=== PATIENT | male | born 1935 | race Caucasian/White ===

== ENCOUNTER 2020-09-21 14:52 | Inpatient (IN) | payer MEDICARE, BC ==
[~2020-09-21] VITALS: Ht 175.3 cm; Wt 67.3 kg
[2020-09-21] MEDS ORDERED: ONDANSETRON 4MG/2ML VIAL IV ONE (15:15)
[2020-09-21] MEDS: NS 1,000 ML IV SCH (15:53)
[2020-09-21] MEDS: MORPHINE 2 MG/ML 1ML VIAL (J2270) IV PRN ×2 (15:54→17:05)
[2020-09-21 16:01] LABS: BASO % 0.3 % (0.0-1.0); EOS # 0.1 10^3/uL (0.0-0.5); EOS % 0.5 % (0.0-3.0); HEMATOCRIT 35.6 % (42.0-52.0); HEMOGLOBIN 11.6 g/dl (13.5-17.5); LYMPH # 0.8 10^3/uL (1.5-5.0); LYMPH % 8.4 % (24.0-44.0); MEAN CORPUSCULAR HEMOGLOBIN 31.4 pg (27.0-33.0); MEAN CORPUSCULAR HGB CONC 32.6 g/dl (32.0-36.5); MEAN CORPUSCULAR VOLUME 96.5 fl (80.0-96.0); MONO # 1.1 10^3/uL (0.0-0.8); MONO % 11.4 % (2.0-8.0); NEUTROPHILS # 7.5 10^3/uL (1.5-8.5); NEUTROPHILS % 79.2 % (36.0-66.0); PLATELET COUNT, AUTOMATED 149 10^3/uL (150-450); RED BLOOD COUNT 3.69 10^6/uL (4.30-6.10); WHITE BLOOD COUNT 9.5 10^3/uL (4.0-10.0)
--- NOTE | 2020-09-21 16:17 | REP ---
INDICATION: pre-op. COMPARISON: None. TECHNIQUE: AP single view chest x-ray. FINDINGS: A bipolar pacemaker is seen in the right heart view of the left side. Monitoring electrodes are noted. Heart is near the upper range of normal in size. The lungs are well inflated and clear. The pleural angles are sharp. Thoracic aorta is calcific. Pulmonary vasculature is not increased. There is soft tissue fullness at the thoracic inlet around the trachea consistent with enlarged thyroid gland versus tortuous vessels. IMPRESSION: Bipolar pacemaker. Borderline heart size. Otherwise no acute disease. <Electronically signed by Thompson Adams > 09/21/20 [id number]
--- NOTE | 2020-09-21 16:18 | REP ---
INDICATION: trauma. Inter trochanteric left hip fracture. COMPARISON: Comparison is made with today's left hip and pelvis views.. TECHNIQUE: AP and lateral views of the mid and distal femur on the left are presented. FINDINGS: AP and latter views of the oral left mid and distal femur demonstrate some clothing artifact. There is patellar spurring at the superior pole. No mid or distal femur fracture is seen.. . No opaque foreign body noted. IMPRESSION: No additional fracture seen. Patellar spurring.. <Electronically signed by Thompson Adams > 09/21/20 [id number]
--- NOTE | 2020-09-21 16:19 | REP ---
INDICATION: trauma. COMPARISON: None. TECHNIQUE: AP view pelvis, AP and cross-table lateral left hip. FINDINGS: Mildly displaced intertrochanteric fracture is visualized of the proximal left femur. There is metallic internal fixation in the proximal right femur, which appears intact. There is no other evidence of acute fracture or dislocation. There are mild degenerative changes at both hip joints. There are degenerative changes of the lower lumbar spine. IMPRESSION: Mildly displaced intertrochanteric fracture proximal left femur. <Electronically signed by Golden Izaguirre > 09/21/20 [id number]
[2020-09-21 16:20] LABS: INR 1.41; PROTHROMBIN TIME 17.6 SECONDS (12.5-14.3)
[2020-09-21 16:21] LABS: PARTIAL THROMBOPLASTIN TIME 31.2 SECONDS (24.2-38.5)
[2020-09-21] MEDS ORDERED: ATOR1TAB19 PO (16:26)
[2020-09-21] MEDS ORDERED: AMLO2.5T3 PO (16:26)
[2020-09-21] MEDS ORDERED: AMLO1TAB24 PO (16:26)
[2020-09-21] MEDS ORDERED: LOSA50TA88 PO (16:26)
[2020-09-21] MEDS ORDERED: FLUD0.1T PO (16:26)
[2020-09-21] MEDS ORDERED: XARE15TA PO (16:26)
[2020-09-21 16:32] LABS: BLOOD UREA NITROGEN 23 MG/DL (7-18); CALCIUM LEVEL 8.2 MG/DL (8.8-10.2); CARBON DIOXIDE LEVEL 29 MEQ/L (21-32); CHLORIDE LEVEL 107 MEQ/L (98-107); CK-MB VALUE MASS 1.5 NG/ML (<3.6); CPK CREATINE PHOSPHOKINASE 69 U/L (39-308); CREATININE FOR GFR 1.03 MG/DL (0.70-1.30); GLOMERULAR FILTRATION RATE > 60.0 (>35); GLUCOSE, FASTING 119 MG/DL (70-100); MB/CK RELATIVE INDEX 2.17 (< OR =4); POTASSIUM SERUM 4.1 MEQ/L (3.5-5.1); SODIUM LEVEL 142 MEQ/L (136-145); TROPONIN I 0.03 NG/ML (< 0.10)
[2020-09-21 16:50] LABS: RSV AMPLIFICATION NEGATIVE (NEGATIVE)
--- NOTE | 2020-09-21 18:37 | HPEPDOC ---
[facility] Medical History & Physical Date of Admission Sep 21, 2020 Date of Service: Sep 21, 2020 History and Physical CHIEF COMPLAINT: left hip pain HISTORY OF PRESENT ILLNESS: 85 year old male presents for left hip pain after a mechanical fall. Patient states he lost his balance while doing errands in his home. Denied head trauma, loss of consciousness, shortness of breath, chest pain, abdominal pain, or N/V/D. He states he typically is able to perform over 30 minutes of activity easily, without ever having anginal symptoms or SOB. PAST MEDICAL HISTORY: #HTN #HLD #afib/xarelto #arrhythmia s/p PPM ALLERGIES: Please see below. REVIEW OF SYSTEMS: Negative except as per HPI. HOME MEDICATIONS: Please see below. PHYSICAL EXAMINATION: VITAL SIGNS: See below General: NAD, lying comfortably in bed HEENT: NC/AT Lungs: CTA B/L Heart: +S1S2, RRR Abd: soft, NT, +BS LABORATORY DATA: See below. MICROBIOLOGY: Please see below. A/P: 85 yo male for left hip fracture after mechanical fall, PMHx afib on xarelto. #left hip fracture - follow as per ortho #HTN - continue home meds #HLD - continue statin therapy #chronic afib - holding xarelto for planned surgery #DVT prophylaxis Vital Signs Vital Signs Date Time Temp Pulse Resp B/P (MAP) Pulse Ox O2 Delivery O2 Flow Rate FiO2 09/21/20 16:55 18 Room Air 09/21/20 15:09 98.6 80 140/78 (98) 99 Laboratory Data Labs 24H Laboratory Tests 2 09/21/20 15:50: Immature Granulocyte % (Auto) 0.2, Neutrophils (%) (Auto) 79.2H, Lymphocytes (%) (Auto) 8.4L, Monocytes (%) (Auto) 11.4H, Eosinophils (%) (Auto) 0.5, Basophils (%) (Auto) 0.3, Neutrophils # (Auto) 7.5, Lymphocytes # (Auto) 0.8L, Monocytes # (Auto) 1.1H, Eosinophils # (Auto) 0.1, Basophils # (Auto) 0.0, Nucleated Red Blood Cells % (auto) 0.0, Prothrombin Time 17.6H, Prothromb Time International Ratio 1.41, Activated Partial Thromboplast Time 31.2, Anion Gap 6L, Glomerular Filtration Rate > 60.0, Calcium Level 8.2L, Total Creatine Kinase 69, Creatine Kinase MB 1.5, Creatine Kinase MB Relative Index 2.17, Troponin I 0.03, Coronavirus (COVID-19)(PCR) NEGATIVE, Influenza Type A (RT-PCR) NEGATIVE, Influenza Type B (RT-PCR) NEGATIVE, Respiratory Syncytial Virus (PCR) NEGATIVE CBC/BMP Laboratory Tests 09/21/20 15:50 Home Medications Scheduled Amlodipine Besylate (Amlodipine Besylate) 2.5 Mg Tablet, 2.5 MG PO Q2D Amlodipine Besylate (Amlodipine Besylate) 5 Mg Tablet, 5 MG PO Q2D Atorvastatin Calcium (Atorvastatin Calcium) 10 Mg Tablet, 10 MG PO Q2D Fludrocortisone Acetate (Fludrocortisone Acetate) 0.1 Mg Tablet, 0.1 MG PO Q2D Losartan Potassium (Losartan Potassium) 50 Mg Tablet, 50 MG PO QHS Rivaroxaban (Xarelto) 15 Mg Tablet, 15 MG PO DAILY Allergies Coded Allergies: tamsulosin (Verified Allergy, Intermediate, hives, 09/21/20) hydrochlorothiazide (Verified Adverse Reaction, Intermediate, pancreatitis, 09/21/20) A-FIB/CHADSVASC A-FIB History Current/History of A-Fib/PAF?: No KEYUR GUILLAUME MD Sep 21, 2020 18:37
[2020-09-21] MEDS ORDERED: PERCOCET 5MG/325MG TAB PO PRN ×3 (19:25→22:05)
[2020-09-21 20:50] VITALS: BP 144/68
[2020-09-21] MEDS ORDERED: MORPHINE 2 MG/ML 1ML VIAL (J2270) IV PRN (22:00)
[2020-09-21] MEDS ORDERED: NALOXONE INJ 0.4MG/1ML VIAL (J2310 PER 1MG) IV PRN (22:05)
[2020-09-21] MEDS: LOSARTAN 50MG TABLET PO SCH (22:06)
[2020-09-21 22:36] LABS: CK-MB VALUE MASS 1.6 NG/ML (<3.6); MB/CK RELATIVE INDEX 2.05 (< OR =4); TROPONIN I 0.04 NG/ML (< 0.10)
[2020-09-22] MEDS: PERCOCET 5MG/325MG TAB PO PRN ×3 (00:32→15:55)
[2020-09-22] MEDS: NS 1,000 ML IV SCH ×3 (01:36→21:39)
[2020-09-22 06:00] VITALS: BP 104/64
[2020-09-22 06:15] LABS: HEMATOCRIT 27.8 % (42.0-52.0); MEAN CORPUSCULAR HEMOGLOBIN 31.7 pg (27.0-33.0); MEAN CORPUSCULAR HGB CONC 32.4 g/dl (32.0-36.5); MEAN CORPUSCULAR VOLUME 97.9 fl (80.0-96.0); PLATELET COUNT, AUTOMATED 110 10^3/uL (150-450); RED BLOOD COUNT 2.84 10^6/uL (4.30-6.10); WHITE BLOOD COUNT 7.2 10^3/uL (4.0-10.0)
[2020-09-22 06:38] LABS: BLOOD UREA NITROGEN 20 MG/DL (7-18); CALCIUM LEVEL 7.8 MG/DL (8.8-10.2); CARBON DIOXIDE LEVEL 29 MEQ/L (21-32); CHLORIDE LEVEL 109 MEQ/L (98-107); CREATININE FOR GFR 1.11 MG/DL (0.70-1.30); GLOMERULAR FILTRATION RATE > 60.0 (>35); GLUCOSE, FASTING 97 MG/DL (70-100); POTASSIUM SERUM 4.4 MEQ/L (3.5-5.1); SODIUM LEVEL 141 MEQ/L (136-145)
--- NOTE | 2020-09-22 08:22 | CR.PDOC ---
General Date of Consultation: Sep 22, 2020 Consultation CHIEF COMPLAINT: left hip pain HISTORY OF PRESENT ILLNESS: Consulted for 85-year-old male with x-ray findings of a left hip intertrochanteric fracture after mechanical fall. The patient states that he was walking down some stairs carrying a blanket when on the bottom step. He tripped up over the blanket and landed on essentially a concrete floor on his left side. He denies any dizziness or otherwise. He denies head trauma or loss of consciousness. He does not report any shortness of breath, chest pain, or otherwise prior. He states that if he performs physical activities for more than an hour or so. He sometimes gets lightheaded. He does state that a few weeks ago he was helping his neighbor with his driveway and after an hour or so. He states that he became lightheaded and "passed out". He typically can feel when this is about to come on. PAST MEDICAL HISTORY: HTN HLD afib/xarelto The patient has had a past surgical history significant for a right hip fracture approximately 7 years ago which was treated with open reduction internal fixation using an intramedullary nail. ALLERGIES: Please see below. REVIEW OF SYSTEMS: Negative except as per HPI. HOME MEDICATIONS: Please see below. PHYSICAL EXAMINATION: VITAL SIGNS: Please see below. GENERAL APPEARANCE: Patient is alert and oriented, in no acute distress, lying in bed. CARDIOVASCULAR: The patient has a palpable posterior tibial pulse. EXTREMITIES: Left lower extremity is in a shortened and external rotation position, consistent with the hip fracture.. NEUROLOGICAL: Patient is grossly neurovascularly intact to the left foot and ankle. Is able to move his toes and his ankle in plantar and dorsiflexion. LABORATORY DATA: Please see below. ASSESSMENT/PLAN: 1. I had a thorough discussion with the patient with regards to treatment for his left hip fracture. This would include open reduction internal fixation with either a short or long intramedullary nail, depending on the fluoroscopic findings, once the patient is set up in the operating room., We did discuss the risks and benefits of the procedure. The risks include but are not limited to infection, blood loss, DVT/PE, periprosthetic fracture, loss of reduction or failure of hardware, and need for revision surgery, damage to local soft tissue or neurovascular structures, and anesthetic risks up to and including heart attack, stroke and . Patient is at an increased risk for bleeding. Due to the fact that he is on Xarelto. This has been held, reportedly since 5 PM, last dose on September 20. He last ate around 8:30. Yesterday evening. The patient signed consent for the left hip open reduction internal fixation. I discussed the patient with the anesthesiologist pest control service technician. The recommendation was to attempt a spinal anesthetic which would require the operation to be delayed until tomorrow, September 23 at 5 PM. I contacted the [facility] and updated the charge nurse. With this information. The patient will be able to eat and have a very early breakfast tomorrow morning and then be nothing by mouth thereafter. The patient appears to be cleared by the hospitalist service as there does not appear to be any workup or otherwise pending. The patient is planned to undergo open reduction internal fixation of left hip tomorrow at 5 PM Vital Signs/I&O Vital Signs Date Time Temp Pulse Resp B/P (MAP) Pulse Ox O2 Delivery O2 Flow Rate FiO2 09/22/20 07:34 18 09/22/20 06:00 98.7 60 104/64 (77) 93 Room Air I&O- Last 24 Hours up to 6 AM 09/22/20 06:00 Intake Total 400 ml Output Total 100 ml Balance 300 ml Laboratory Data Labs 24H Laboratory Tests 2 09/21/20 15:50: Immature Granulocyte % (Auto) 0.2, Neutrophils (%) (Auto) 79.2H, Lymphocytes (%) (Auto) 8.4L, Monocytes (%) (Auto) 11.4H, Eosinophils (%) (Auto) 0.5, Basophils (%) (Auto) 0.3, Neutrophils # (Auto) 7.5, Lymphocytes # (Auto) 0.8L, Monocytes # (Auto) 1.1H, Eosinophils # (Auto) 0.1, Basophils # (Auto) 0.0, Nucleated Red Blood Cells % (auto) 0.0, Prothrombin Time 17.6H, Prothromb Time International Ratio 1.41, Activated Partial Thromboplast Time 31.2, Anion Gap 6L, Glomerular Filtration Rate > 60.0, Calcium Level 8.2L, Total Creatine Kinase 69, Creatine Kinase MB 1.5, Creatine Kinase MB Relative Index 2.17, Troponin I 0.03, Coronavirus (COVID-19)(PCR) NEGATIVE, Influenza Type A (RT-PCR) NEGATIVE, Influenza Type B (RT-PCR) NEGATIVE, Respiratory Syncytial Virus (PCR) NEGATIVE 09/21/20 21:58: Total Creatine Kinase 78, Creatine Kinase MB 1.6, Creatine Kinase MB Relative Index 2.05, Troponin I 0.04# 09/22/20 05:44: Nucleated Red Blood Cells % (auto) 0.0, Anion Gap 3L, Glomerular Filtration Rate > 60.0, Calcium Level 7.8L CBC/BMP Laboratory Tests 09/21/20 15:50 09/22/20 05:44 Allergies Coded Allergies: tamsulosin (Verified Allergy, Intermediate, hives, 09/21/20) hydrochlorothiazide (Verified Adverse Reaction, Intermediate, pancreatitis, 09/21/20) Home Medications Scheduled Amlodipine Besylate (Amlodipine Besylate) 2.5 Mg Tablet, 2.5 MG PO Q2D, ( Reported) Amlodipine Besylate (Amlodipine Besylate) 5 Mg Tablet, 5 MG PO Q2D, (Reported) Atorvastatin Calcium (Atorvastatin Calcium) 10 Mg Tablet, 10 MG PO Q2D, (Reported) Fludrocortisone Acetate (Fludrocortisone Acetate) 0.1 Mg Tablet, 0.1 MG PO Q2D, (Reported) Losartan Potassium (Losartan Potassium) 50 Mg Tablet, 50 MG PO QHS, (Reported) Rivaroxaban (Xarelto) 15 Mg Tablet, 15 MG PO DAILY, (Reported) ALEJANDRA CARBAJAL MD Sep 22, 2020 08:22
[2020-09-22 08:26] LABS: CK-MB VALUE MASS 1.7 NG/ML (<3.6); CPK CREATINE PHOSPHOKINASE 75 U/L (39-308); MB/CK RELATIVE INDEX 2.27 (< OR =4); TROPONIN I 0.05 NG/ML (< 0.10)
[2020-09-22] MEDS: amLODIPine 5 MG TAB PO SCH (09:00)
--- NOTE | 2020-09-22 11:23 | IPNPDOC ---
Text Note Date of Service The patient was seen on 09/22/20. NOTE Subjective: Patient seen and examined at bedside. No acute overnight events reported. Patient has no new medical complaints this morning. This morning he tells me he had a syncopal episode after significant exertion last week, helping his neighbor move some bricks. He had a similar episodes about three years ago. He also notes he follows with two cardiologists - Dr. Godwin, and Dr. Will Clark in [place], [place]. Objective: VITAL SIGNS: See below General: NAD, lying comfortably in bed HEENT: NC/AT Lungs: CTA B/L Heart: +S1S2, RRR Abd: soft, NT, +BS Ext: no edema A/P: 85 yo male for left hip fracture after mechanical fall, PMHx afib on xarelto, HTN, HLD. #left hip fracture - follow as per ortho #HTN - continue home meds #HLD - continue statin therapy #chronic afib - rate controlled - holding xarelto for planned surgery #DVT prophylaxis - mechanical Dispo: waiting for medical records from Dr. Godwin's office, pending echocardiogram, repeat troponins. VS,Fishbone, I+O VS, Fishbone, I+O Laboratory Tests 09/21/20 15:50 09/22/20 05:44 Vital Signs Date Time Temp Pulse Resp B/P (MAP) Pulse Ox O2 Delivery O2 Flow Rate FiO2 09/22/20 09:00 63 104/62 09/22/20 08:04 18 09/22/20 06:00 98.7 93 Room Air I&O- Last 24 Hours up to 6 AM 09/22/20 06:00 Intake Total 400 ml Output Total 100 ml Balance 300 ml KEYUR GUILLAUME MD Sep 22, 2020 11:23
[2020-09-22] MEDS: ATORVASTATIN 10 MG TAB PO SCH (12:28)
[2020-09-22 12:30] LABS: CK-MB VALUE MASS 2.5 NG/ML (<3.6); MB/CK RELATIVE INDEX 2.23 (< OR =4); TROPONIN I 0.04 NG/ML (< 0.10)
[2020-09-22 14:00] VITALS: BP 114/65
[2020-09-22] MEDS: LOSARTAN 50MG TABLET PO SCH (21:40)
[2020-09-22 22:00] VITALS: BP 144/65
--- NOTE | 2020-09-22 22:44 | ECGEPIP ---
[facility] - ED Test Date: 2020-09-21 Pat Name: RIYA YEH Department: Room: - Gender: Male Administration Dean: KENTON : 1935 Requested By: Stu Segundo Order Number: [id number] Reading MD: Stu Elaine Measurements Intervals [place] Rate: 72 P: IL: 144 QRS: -74 QRSD: 134 T: 94 QT: 424 QTc: 464 Interpretive Statements AV dual-paced rhythm with premature ventricular or aberrantly conducted complexes NO PRIORS FOR COMPARISON Electronically Signed on 09-22-2020 22:43:50 EDT by Stu Elaine
[2020-09-23 06:00] VITALS: BP 138/64
[2020-09-23 06:29] LABS: BASO % 0.5 % (0.0-1.0); EOS # 0.2 10^3/uL (0.0-0.5); EOS % 1.8 % (0.0-3.0); HEMATOCRIT 28.7 % (42.0-52.0); HEMOGLOBIN 9.2 g/dl (13.5-17.5); LYMPH # 1.4 10^3/uL (1.5-5.0); LYMPH % 17.1 % (24.0-44.0); MEAN CORPUSCULAR HEMOGLOBIN 32.1 pg (27.0-33.0); MEAN CORPUSCULAR HGB CONC 32.1 g/dl (32.0-36.5); MONO # 1.1 10^3/uL (0.0-0.8); MONO % 13.1 % (2.0-8.0); NEUTROPHILS # 5.6 10^3/uL (1.5-8.5); PLATELET COUNT, AUTOMATED 107 10^3/uL (150-450); RED BLOOD COUNT 2.87 10^6/uL (4.30-6.10); WHITE BLOOD COUNT 8.4 10^3/uL (4.0-10.0)
[2020-09-23 06:47] LABS: BLOOD UREA NITROGEN 23 MG/DL (7-18); CALCIUM LEVEL 7.5 MG/DL (8.8-10.2); CARBON DIOXIDE LEVEL 24 MEQ/L (21-32); CHLORIDE LEVEL 112 MEQ/L (98-107); GLOMERULAR FILTRATION RATE > 60.0 (>35); GLUCOSE, FASTING 90 MG/DL (70-100); POTASSIUM SERUM 4.2 MEQ/L (3.5-5.1); SODIUM LEVEL 142 MEQ/L (136-145)
--- NOTE | 2020-09-23 07:04 | IPNPDOC ---
Text Note Date of Service The patient was seen on 09/23/20. NOTE Subjective: Patient seen and examined at bedside. No acute overnight events reported. Patient has no new medical complaints this morning. Objective: VITAL SIGNS: See below General: NAD, lying comfortably in bed HEENT: NC/AT Lungs: CTA B/L Heart: +S1S2, RRR Abd: soft, NT, +BS Ext: no edema A/P: 85 yo male for left hip fracture after mechanical fall, PMHx afib on xarelto, H TN, HLD. #left hip fracture - follow as per ortho #HTN - continue home meds #HLD - continue statin therapy #chronic afib - rate controlled - holding xarelto for planned surgery #DVT prophylaxis - mechanical Dispo: Patient is medically optimized for planned orthopedic surgical intervention. Echocardiogram discussed with Dr. Godwin, no acute findings. Patient easily attains greater than 4 METS without any anginal symptoms of shortness of breath. He scores 0 points utilizing RCRI for pre-operative risk, and is considered class I risk. VS,Fishbone, I+O VS, Fishbone, I+O Laboratory Tests 09/23/20 06:12 Vital Signs Date Time Temp Pulse Resp B/P (MAP) Pulse Ox O2 Delivery O2 Flow Rate FiO2 09/22/20 22:11 18 09/22/20 22:00 99.8 66 144/65 (91) 94 Room Air I&O- Last 24 Hours up to 6 AM 09/23/20 06:00 Intake Total 570 ml Output Total 545 ml Balance 25 ml KEYUR GUILLAUME MD Sep 23, 2020 07:04
[2020-09-23] MEDS: NS 1,000 ML IV SCH ×2 (07:31→16:26)
[2020-09-23 09:00] VITALS: BP 138/62
[2020-09-23] MEDS: PERCOCET 5MG/325MG TAB PO PRN (11:17)
[2020-09-23] MEDS: FLUDROCORTISONE ACETATE 0.1 MG TAB PO SCH (11:27)
[2020-09-23 14:00] VITALS: BP 136/60
[2020-09-23] MEDS ORDERED: TRANEXAMIC ACID 100 MG/ML 10ML VIAL As Ordered ONE (16:27)
[2020-09-23] MEDS ORDERED: ceFAZolin 2 GM/D5W 50 ML IV BAG (J0690 PER 500MG) As Ordered ONE (16:29)
[2020-09-23] MEDS ORDERED: LIDOCAINE 2% 100MG/5ML SDV (FOR ANES.) As Ordered ONE (16:42)
[2020-09-23] MEDS ORDERED: propofoL 200 MG/20 ML VIAL As Ordered ONE ×2 (16:42→19:52)
[2020-09-23] MEDS ORDERED: fentaNYL 100 MCG/2 ML INJECTION (J3010) As Ordered ONE ×2 (16:43→19:52)
[2020-09-23] MEDS ORDERED: MIDAZOLAM INJ 2MG/2ML VIAL (J2250 PER 1MG) As Ordered ONE (16:43)
[2020-09-23] MEDS ORDERED: ePHEDrine SULFATE 25 MG/5 ML(5MG/ML) SYRINGE As Ordered ONE (18:35)
[2020-09-23] MEDS ORDERED: BUPIVACAINE/EPIN 0.5% 30 ML VIAL As Ordered ONE (19:56)
[2020-09-23] MEDS ORDERED: oxyCODONE 5MG TAB PO PRN ×2 (20:30→21:45)
[2020-09-23] MEDS ORDERED: LR 1,000 ML IV SCH (20:30)
[2020-09-23] MEDS ORDERED: ONDANSETRON 4MG/2ML VIAL IV PRN ×2 (20:30→21:50)
[2020-09-23] MEDS ORDERED: HYDROMORPHONE HCL 0.5 MG/ 0.5 ML SYRINGE (J1170 PER 1) IV PRN (20:30)
--- NOTE | 2020-09-23 20:40 | ROOPDOC ---
[facility] Report Of Operation Report of Operation DATE OF PROCEDURE: 09/23/20 PREPROCEDURE DIAGNOSES: Left hip intertrochanteric fracture POSTPROCEDURE DIAGNOSES: Comminuted left hip intertrochanteric fracture with subtrochanteric extension. PROCEDURE: Long intramedullary nail, left hip open reduction internal fixation SURGEON: Alejandra Carbajal MD ROUGH RICE GRADER: Ha Eng MD IC 10. Modifier 80: A second surgeon was utilized during this procedure to help with holding the reduction intraoperatively and decision making ANESTHESIA: Spinal anesthetic. ESTIMATED BLOOD LOSS: Approximately less than 200 mL. COMPLICATIONS: No known complications. . Of note, the patient did have what appeared to be a pressure ulcer forming over his sacrum. A operative foam pressure dressing was placed over this. REMARKS: A 10 x 380 mm 125 gamma nail was utilized. The cephalomedullary screw was a 10.5 x 95 mm screw. The distal locking screws were 5 x 47.5 and 5 x 52.5 mm PROCEDURE NOTE: The patient was taken to the operating room approximately 72 hours after the injury for medical optimization and as the patient was on Xarelto blood thinner. Who seen in the preoperative area and the left hip was signed. The consent was reviewed, as well as his history and physical. DESCRIPTION OF PROCEDURE: The patient was brought to the operating room and the spinal anesthetic was carried out. Once this was performed, the patient was transferred to the [facility] traction table. His left lower extremity was gordy marco antonio in traction and the right lower extremity was placed in the well-leg branch. Appropriate padding was performed throughout. Fluoroscopy was utilized to determine the reduction. There was some shadows suggesting that there was some subtrochanteric extension that was not entirely appreciable once the reduction maneuvers had been performed. The second surgeon, Dr. Eng, was consulted intraoperatively and assisted with the procedure. Once an appropriate reduction had been lined up on fluoroscopy, it was determined that Dr. Eng would hold reduction of the fracture fragment with a bone hook throughout the procedure in order to obtain the best reduction. The patient underwent a normal sterile prep and drape with 2 times chlorhexidine swab. A sharp curtain drape was then placed. Fluoroscopy was utilized to identify the starting point and the incision was made proximal to the greater trochanter. Additional reduction maneuvers were performed and a small incision was made just at the level of the lesser trochanter. A Lima was used to go anteriorly over the femur and the intertrochanteric region and while staying close to the bone. A bone hook was used to hook. The fracture fragment and adjust its position into an acceptable alignment. This was held in position. While utilizing fluoroscopy in AP and lateral positions. The awl was utilized to advance the guidewire down to just above the fascial scar. This was monitored with AP and lateral fluoroscopy throughout the journey through the femoral canal. After a significant period of time was utilized with the reduction and holding the fracture reduced. This passed easily through the femoral canal. The drill guide. Soft tissue guide was placed and the opening reamer was utilized to open up the canal. The 9.5 reamer was advanced. This essentially had no resistance and was removed. This was bumped up to an 11 and 11.5 and then a 12 mm reamer with minimal chatter for the 10 mm diameter nail that was available. The guidewire was used to measure a 380 mm length nail. Throughout this, the bone hook was used to maintain the reduction. The nail was inserted and easily traversed the femoral canal with the anterior bow in appropriate position. This was placed at an appropriate level with the femoral neck. The guidewire was removed and the 125 cephalo-medullary screw guide was placed. This was locked into position, and the skin and subcutaneous tissue as well as the fascia was incised down to bone, allowing the drill guide to be placed. Checking AP and lateral fluoroscopy. The guidepin for the cephalo- medullary screw was advanced to the subchondral bone of the femoral head. This was found to be in acceptable center center position on AP and lateral fluoroscopic imaging. The length was measured and the reamer was set to 105 mm and the 95 mm screw was advanced to within 5-10 mm of the subchondral bone. Fluoroscopic imaging on AP and lateral views was checked throughout the guidewire was then removed. The set screw was then positioned and tightened and then taken back, one quarter turn. Attention was then turned to the distal femoral locking screws. Using perfect nightmute technique, the 2 lateral to medial distal locking screws were drilled and 5 mm x 42.5 and 52.5 mm screws were placed under fluoroscopic guidance. The IM nail. Guide was then removed. AP and lateral fluoroscopic images were obtained throughout the length of the femur. These were saved. The wounds were then washed and irrigated with copious amounts of normal sterile saline. The fascia was closed with running #1 Vicryl suture. The subcutaneous tissue was closed with running 2. 0 Vicryl and the subcuticular tissue was closed with 3.0 antibacterial Monocryl running sutures. The skin was cleansed and Steri-Strips were applied. Adaptic, Telfa and Tegaderm dressings were then placed over each of the 4 incision groupings. Local anesthetic was instilled around the incisions prior to dressings with 0.5% Marcaine with epinephrine. The patient's anesthetic was reversed. He was taken out of the traction and well-leg branch and transferred to his bed. The patient tolerated the procedure well with no known complications. He was then taken to the recovery room. He will be admitted back under the hospitalist service. X-ray imaging will be obtained. Weightbearing as tolerated with a walker and assist. The patient will have physical therapy and occupational therapy reassessment. There may be a need for rehabilitation. Dressings may be reinforced when necessary. His Xarelto may be started postop day 1. He will have follow-up in 2 weeks in the orthopedic clinic for reassessment with repeat x-ray imaging ALEJANDRA CARBAJAL MD Sep 23, 2020 20:40
[2020-09-23] MEDS: LR 1,000 ML IV SCH (21:00)
[2020-09-23] MEDS: LOSARTAN 50MG TABLET PO SCH (21:00)
[2020-09-23] MEDS: fentaNYL 100 MCG/2 ML INJECTION (J3010) IV PRN ×4 (21:18→21:41)
[2020-09-23] MEDS: oxyCODONE 5MG TAB PO PRN (21:53)
[2020-09-23 22:12] VITALS: BP 168/72
[2020-09-23 22:38] VITALS: BP 138/59
[2020-09-23] MEDS: ACETAMINOPHEN TAB 650MG DOSE (2X325MG) PO PRN (23:08)
[2020-09-23 23:45] VITALS: BP 160/78
[2020-09-24] VITALS (10 sets, daily range): BP systolic 102–146; BP diastolic 50–87; O2SAT 94
[2020-09-24] MEDS: ceFAZolin SOD 2 GM in IV 1 EA IV SCH ×3 (03:02→17:30)
[2020-09-24] MEDS: LR 1,000 ML IV SCH (06:10)
--- NOTE | 2020-09-24 08:00 | REP ---
INDICATION: LEFT HIP FRACTURE. COMPARISON: None. TECHNIQUE: Ten views. 265 seconds of fluoroscopy is reported. FINDINGS: A sequence of 10 last image hold fluoroscopically obtained spot radiographs of the left femur document open reduction internal fixation for intertrochanteric fracture. IMPRESSION: Procedural imaging. <Electronically signed by Thompson Adams > 09/24/20 0750
--- NOTE | 2020-09-24 08:01 | REP ---
INDICATION: S/P GAMMA NAIL AP/LAT TO INCLUDE HIP PLEASE. COMPARISON: Comparison femur radiographs September 21, 2020. Comparison hip radiographs September 21, 2020.. TECHNIQUE: Four views. FINDINGS: Four views of the left femur demonstrate an intramedullary sha in place and a proximal femoral neck pin transfixing the patient's inter trochanteric fracture in good alignment. There is periarticular soft tissue emphysema and swelling.. . . IMPRESSION: Status post pinning for intertrochanteric fracture left hip.. <Electronically signed by Thompson Adams > 09/24/20 1307
--- NOTE | 2020-09-24 08:38 | REP ---
INDICATION: ams, fall. COMPARISON: None. TECHNIQUE: Helical scanning is acquired. 5 mm axial images were reformatted. Coronal MPR images were generated. FINDINGS: Bone window settings demonstrate an intact bony calvarium. There is no evidence of skull fracture or incidental bony calvarial lesion. The visualized paranasal sinuses appear clear. No intraorbital abnormality is seen. On soft tissue window setting images; the lateral, third, and fourth ventricles are normal in size and position. Izaguirre-white differentiation pattern is normal above and below the tentorium. There are is no evidence of intracranial hemorrhage. No mass, edema, infarction, or midline shift is seen. No extra-axial fluid collection is appreciated. There is mild vascular calcification in the distal carotid arteries bilaterally. Generalized volume loss is seen. IMPRESSION: Generalized volume loss and vascular calcification. No acute intracranial abnormality.. <Electronically signed by Thompson Adams > 09/24/20 0807
--- NOTE | 2020-09-24 08:52 | IPNPDOC ---
Text Note Date of Service The patient was seen on 09/24/20. NOTE Postop day 1 for complex left hip fracture open reduction internal fixation with long intramedullary gamma nail. The patient was lying in bed. He was awake over. He is not oriented. The patient seemed a little bit dejected which ultimately seemed to be a response to the fact that he states he gets his urinal and his water cup this morning. He was moving his extremities and speaking well; however, there had been a clear change in his behavior from the preoperative period. He does state that he was in some pain. He was grinning and laughing periodically. The Telfa Tegaderm Incisional dressings were examined. There did not appear to be any significant sustaining or soiling of the dressings. Postoperative x-ray imaging was independently ordered and reviewed by myself. The x-ray imaging showed the long gamma nail in position without signs of complication or otherwise. I've spoken to the nurse and the charge nurse about the patient's change in behavior, and they contact the hospitalist to evaluate the patient early this morning For now the patient will remain weightbearing as tolerated with a walker and assist. The dressings may be changed for soiling or reinforce when necessary I did speak to the patient's after the surgery. Last evening. He had a previous right hip fracture and she states that he did require rehabilitation placement. After that, hip fracture, so that will most likely be the patient's disposition for discharge once he is medically fit. VS,Fishbone, I+O VS, Fishbone, I+O Vital Signs Date Time Temp Pulse Resp B/P (MAP) Pulse Ox O2 Delivery O2 Flow Rate FiO2 09/24/20 04:37 98.6 61 20 146/65 (92) 89 Nasal Cannula 1.5 I&O- Last 24 Hours up to 6 AM 09/24/20 05:59 Intake Total 2670 ml Output Total 975 ml Balance 1695 ml ALEJANDRA CARBAJAL MD Sep 24, 2020 08:52
--- NOTE | 2020-09-24 08:57 | REP ---
INDICATION: sob. COMPARISON: Comparison chest x-ray 09/21/2020.. TECHNIQUE: Helical scanning is acquired. 3 mm axial images are generated. Coronal and sagittal MPR and coronal MIP images are generated. FINDINGS: Preliminary digital health and social care teacher radiograph demonstrates cardiomegaly with pacemaker. There are small bilateral pleural effusions. Axial CT images demonstrate four-chamber cardiac enlargement. No pericardial effusion is seen. Some vascular calcifications noted. No pulmonary mass or infiltrate. Mild compressive atelectasis is seen in the lower lobes bilaterally in association with the effusions. Minimal interlobular septal thickening is seen in the right middle lobe at the right lung base. No other evidence to suggest pulmonary edema. Bone window settings show no bony destructive lesion. IMPRESSION: CHF pattern. Cardiomegaly with pacemaker. Small bilateral pleural effusions. <Electronically signed by Thompson Adams > 09/24/20 [id number]
[2020-09-24 09:26] LABS: HEMATOCRIT 26.6 % (42.0-52.0); HEMOGLOBIN 8.5 g/dl (13.5-17.5); PLATELET COUNT, AUTOMATED 122 10^3/uL (150-450); RED BLOOD COUNT 2.66 10^6/uL (4.30-6.10); WHITE BLOOD COUNT 8.6 10^3/uL (4.0-10.0)
[2020-09-24] MEDS: amLODIPine 5 MG TAB PO SCH (09:28)
[2020-09-24 10:06] LABS: ALBUMIN 2.4 GM/DL (3.2-5.2); ALT/SGPT 22 U/L (12-78); BILIRUBIN,TOTAL 1.2 MG/DL (0.2-1.0); BLOOD UREA NITROGEN 23 MG/DL (7-18); CALCIUM LEVEL 7.6 MG/DL (8.8-10.2); CARBON DIOXIDE LEVEL 21 MEQ/L (21-32); CHLORIDE LEVEL 113 MEQ/L (98-107); CREATININE FOR GFR 1.04 MG/DL (0.70-1.30); GLOMERULAR FILTRATION RATE > 60.0 (>35); GLUCOSE, FASTING 95 MG/DL (70-100); POTASSIUM SERUM 4.2 MEQ/L (3.5-5.1); SODIUM LEVEL 141 MEQ/L (136-145); TOTAL PROTEIN 5.3 GM/DL (6.4-8.2)
--- NOTE | 2020-09-24 11:39 | IPNPDOC ---
Text Note Date of Service The patient was seen on 09/24/20. NOTE Subjective: Patient seen and examined at bedside. Patient underwent surgery yesterday for repair of his left hip fx. This morning it was reported patient had altered mentation. At time of examination patient was back to baseline, patient was aware of his episode this morning. He voices no medical complaints this morning. Objective: VITAL SIGNS: See below General: NAD, lying comfortably in bed HEENT: NC/AT Lungs: CTA B/L Heart: +S1S2, RRR Abd: soft, NT, +BS Ext: no edema A/P: 85 yo male for POD #1 for surgical repair of left hip fracture after mechanical fall, PMHx afib on xarelto, HTN, HLD. #left hip fracture - POD #1 - follow as per ortho #anemia - acute blood loss anemia in the setting of femur fx requiring surgical repair - will continue to monitor H/H - follow up h/h today #HTN - continue home meds #HLD - continue statin therapy #chronic afib - rate controlled - previously on xarelto at home #DVT prophylaxis - mechanical Dispo: pending ortho follow up, and PT VS,Fishbone, I+O VS, Fishbone, I+O Laboratory Tests 09/24/20 09:06 Vital Signs Date Time Temp Pulse Resp B/P (MAP) Pulse Ox O2 Delivery O2 Flow Rate FiO2 09/24/20 10:00 97.9 61 18 135/60 (85) 100 Nasal Cannula 2.0 I&O- Last 24 Hours up to 6 AM 09/24/20 06:00 Intake Total 2070 ml Output Total 875 ml Balance 1195 ml KEYUR GUILLAUME MD Sep 24, 2020 11:39
[2020-09-24] MEDS: ATORVASTATIN 10 MG TAB PO SCH (12:01)
[2020-09-24] MEDS: RIVAROXABAN 15 MG TAB (XARELTO) PO SCH (17:31)
[2020-09-24 17:51] LABS: HEMATOCRIT 25.8 % (42.0-52.0); HEMOGLOBIN 8.5 g/dl (13.5-17.5)
[2020-09-24] MEDS: ACETAMINOPHEN TAB 650MG DOSE (2X325MG) PO PRN (20:32)
[2020-09-24] MEDS: LOSARTAN 50MG TABLET PO SCH (20:32)
[2020-09-25] VITALS (7 sets, daily range): BP systolic 126–157; BP diastolic 61–82
[2020-09-25 07:23] LABS: HEMATOCRIT 24.4 % (42.0-52.0); HEMOGLOBIN 7.9 g/dl (13.5-17.5); MEAN CORPUSCULAR HEMOGLOBIN 31.6 pg (27.0-33.0); MEAN CORPUSCULAR HGB CONC 32.4 g/dl (32.0-36.5); MEAN CORPUSCULAR VOLUME 97.6 fl (80.0-96.0); PLATELET COUNT, AUTOMATED 145 10^3/uL (150-450); WHITE BLOOD COUNT 8.6 10^3/uL (4.0-10.0)
[2020-09-25 07:30] LABS: BLOOD UREA NITROGEN 28 MG/DL (7-18); CALCIUM LEVEL 7.7 MG/DL (8.8-10.2); CARBON DIOXIDE LEVEL 28 MEQ/L (21-32); CHLORIDE LEVEL 110 MEQ/L (98-107); CREATININE FOR GFR 1.11 MG/DL (0.70-1.30); GLOMERULAR FILTRATION RATE > 60.0 (>35); GLUCOSE, FASTING 100 MG/DL (70-100); POTASSIUM SERUM 4.2 MEQ/L (3.5-5.1); SODIUM LEVEL 142 MEQ/L (136-145)
--- NOTE | 2020-09-25 09:47 | IPNPDOC ---
Text Note Date of Service The patient was seen on 09/25/20. NOTE Subjective: Patient seen and examined at bedside. No acute overnight events reported. No new medical complaints this morning. Objective: VITAL SIGNS: See below General: NAD, lying comfortably in bed HEENT: NC/AT Lungs: CTA B/L Heart: +S1S2, RRR Abd: soft, NT, +BS Ext: no edema A/P: 85 yo male for POD #2 for surgical repair of left hip fracture after mechanical fall, PMHx afib on xarelto, HTN, HLD. #left hip fracture - POD #2 - follow as per ortho #anemia - acute blood loss anemia in the setting of femur fx requiring surgical repair - will continue to monitor H/H - transfuse 1 PRBC today #HTN - continue home meds #HLD - continue statin therapy #chronic afib - rate controlled - previously on xarelto at home #DVT prophylaxis - mechanical Dispo: pending ortho follow up, and PT VS,Fishbone, I+O VS, Fishbone, I+O Laboratory Tests 09/24/20 17:19 09/25/20 06:27 Vital Signs Date Time Temp Pulse Resp B/P (MAP) Pulse Ox O2 Delivery O2 Flow Rate FiO2 09/25/20 09:26 62 123/64 09/25/20 05:32 98.0 17 97 Nasal Cannula 1.0 I&O- Last 24 Hours up to 6 AM 09/25/20 06:00 Intake Total 1360 ml Output Total 520 ml Balance 840 ml KEYUR GUILLAUME MD September 25, 2020 09:47
--- NOTE | 2020-09-25 11:52 | IPNPDOC ---
Text Note Date of Service The patient was seen on 09/25/20. NOTE POD 2 Left hip IMN long gamma for fracture Pt well, no significant complaints. Mentation appears to be at baseline compared to POD 1 Has been sitting up in chair this morning for an hour. Grossly NVI left foot and ankle. Dressings intact, clean and dry. Plan: Continue to mobilize. Likely will require rehab. VS,Fishbone, I+O VS, Fishbone, I+O Laboratory Tests 09/24/20 17:19 09/25/20 06:27 Vital Signs Date Time Temp Pulse Resp B/P (MAP) Pulse Ox O2 Delivery O2 Flow Rate FiO2 09/25/20 09:26 62 123/64 09/25/20 08:00 1.0 09/25/20 05:32 98.0 17 97 Nasal Cannula I&O- Last 24 Hours up to 6 AM 09/25/20 06:00 Intake Total 1360 ml Output Total 520 ml Balance 840 ml ALEJANDRA CARBAJAL MD September 25, 2020 11:52
[2020-09-25] MEDS: FLUDROCORTISONE ACETATE 0.1 MG TAB PO SCH (12:13)
[2020-09-25] MEDS: RIVAROXABAN 15 MG TAB (XARELTO) PO SCH (17:57)
[2020-09-25] MEDS: MOM 30ML SUSPENSION UDC PO PRN (17:57)
[2020-09-25] MEDS: DOCUSATE SODIUM 100MG CAPSULE PO PRN (17:57)
[2020-09-25 18:25] LABS: HEMATOCRIT 27.8 % (42.0-52.0); HEMOGLOBIN 9.1 g/dl (13.5-17.5)
[2020-09-25] MEDS: SENNA 8.6 MG TAB (SENOKOT) PO PRN (21:42)
[2020-09-25] MEDS: LOSARTAN 50MG TABLET PO SCH (21:43)
[2020-09-25] MEDS: oxyCODONE 5MG TAB PO PRN (21:43)
[2020-09-26 06:00] VITALS: BP 140/66
[2020-09-26 07:55] LABS: BASO % 0.2 % (0.0-1.0); EOS % 0.7 % (0.0-3.0); HEMATOCRIT 27.8 % (42.0-52.0); HEMOGLOBIN 9.2 g/dl (13.5-17.5); LYMPH # 1.1 10^3/uL (1.5-5.0); LYMPH % 12.2 % (24.0-44.0); MEAN CORPUSCULAR HEMOGLOBIN 31.8 pg (27.0-33.0); MEAN CORPUSCULAR HGB CONC 33.1 g/dl (32.0-36.5); MEAN CORPUSCULAR VOLUME 96.2 fl (80.0-96.0); MONO % 8.9 % (2.0-8.0); NEUTROPHILS % 77.7 % (36.0-66.0); PLATELET COUNT, AUTOMATED 166 10^3/uL (150-450); RED BLOOD COUNT 2.89 10^6/uL (4.30-6.10)
[2020-09-26 07:56] LABS: EOS # 0.1 10^3/uL (0.0-0.5); MONO # 0.8 10^3/uL (0.0-0.8)
[2020-09-26 08:19] LABS: ALBUMIN 2.3 GM/DL (3.2-5.2); ALT/SGPT 28 U/L (12-78); BILIRUBIN,TOTAL 1.7 MG/DL (0.2-1.0); BLOOD UREA NITROGEN 29 MG/DL (7-18); CALCIUM LEVEL 7.9 MG/DL (8.8-10.2); CARBON DIOXIDE LEVEL 29 MEQ/L (21-32); CHLORIDE LEVEL 109 MEQ/L (98-107); CREATININE FOR GFR 0.88 MG/DL (0.70-1.30); GLOMERULAR FILTRATION RATE > 60.0 (>35); GLUCOSE, FASTING 93 MG/DL (70-100); POTASSIUM SERUM 4.3 MEQ/L (3.5-5.1); SODIUM LEVEL 143 MEQ/L (136-145); TOTAL PROTEIN 5.4 GM/DL (6.4-8.2)
[2020-09-26] MEDS: MOM 30ML SUSPENSION UDC PO PRN (08:54)
[2020-09-26] MEDS: oxyCODONE 5MG TAB PO PRN ×3 (08:54→21:38)
[2020-09-26] MEDS: SENNA 8.6 MG TAB (SENOKOT) PO PRN (08:54)
[2020-09-26] MEDS: amLODIPine 5 MG TAB PO SCH (08:55)
[2020-09-26] MEDS: ATORVASTATIN 10 MG TAB PO SCH (12:22)
--- NOTE | 2020-09-26 13:44 | IPNPDOC ---
Text Note Date of Service The patient was seen on 09/26/20. NOTE Subjective: Patient seen and examined at bedside. No acute overnight events reported. No new medical complaints this morning. Objective: VITAL SIGNS: See below General: NAD, lying comfortably in bed HEENT: NC/AT Lungs: CTA B/L Heart: +S1S2, RRR Abd: soft, NT, +BS Ext: no edema A/P: 85 yo male for POD #3 for surgical repair of left hip fracture after mechanical fall, PMHx afib on xarelto, HTN, HLD. #left hip fracture - POD #3 - follow as per ortho #anemia - acute blood loss anemia in the setting of femur fx requiring surgical repair - will continue to monitor H/H #HTN - continue home meds #HLD - continue statin therapy #chronic afib - rate controlled - previously on xarelto at home #DVT prophylaxis - mechanical Dispo: pending ortho follow up, and PT VS,Fishbone, I+O VS, Fishbone, I+O Laboratory Tests 09/25/20 18:13 09/26/20 06:58 Vital Signs Date Time Temp Pulse Resp B/P (MAP) Pulse Ox O2 Delivery O2 Flow Rate FiO2 09/26/20 09:30 18 09/26/20 08:55 123/58 09/26/20 06:00 98.9 59 96 Room Air 09/25/20 21:00 0.0 I&O- Last 24 Hours up to 6 AM 09/26/20 06:00 Intake Total 1180 ml Output Total 550 ml Balance 630 ml KEYUR GUILLAUME MD September 26, 2020 13:44
[2020-09-26 14:20] VITALS: BP 129/72
[2020-09-26] MEDS ORDERED: BISACODYL 10 MG SUPP PR PRN (16:30)
[2020-09-26] MEDS ORDERED: FLEET ENEMA PR PRN (16:30)
[2020-09-26] MEDS: RIVAROXABAN 15 MG TAB (XARELTO) PO SCH (17:47)
[2020-09-26] MEDS: DOCUSATE SODIUM 100MG CAPSULE PO PRN (21:38)
[2020-09-26] MEDS: LOSARTAN 50MG TABLET PO SCH (21:38)
[2020-09-26 22:00] VITALS: BP 123/59
[2020-09-27 06:00] VITALS: BP 132/62
[2020-09-27] MEDS: oxyCODONE 5MG TAB PO PRN ×2 (06:48→17:17)
[2020-09-27 06:49] LABS: HEMATOCRIT 27.2 % (42.0-52.0); HEMOGLOBIN 8.8 g/dl (13.5-17.5); MEAN CORPUSCULAR HEMOGLOBIN 31.4 pg (27.0-33.0); MEAN CORPUSCULAR HGB CONC 32.4 g/dl (32.0-36.5); MEAN CORPUSCULAR VOLUME 97.1 fl (80.0-96.0); PLATELET COUNT, AUTOMATED 183 10^3/uL (150-450); WHITE BLOOD COUNT 7.7 10^3/uL (4.0-10.0)
[2020-09-27 07:20] LABS: BLOOD UREA NITROGEN 34 MG/DL (7-18); CALCIUM LEVEL 7.9 MG/DL (8.8-10.2); CARBON DIOXIDE LEVEL 30 MEQ/L (21-32); CHLORIDE LEVEL 109 MEQ/L (98-107); GLOMERULAR FILTRATION RATE > 60.0 (>35); GLUCOSE, FASTING 98 MG/DL (70-100); POTASSIUM SERUM 4.7 MEQ/L (3.5-5.1); SODIUM LEVEL 143 MEQ/L (136-145)
[2020-09-27 09:08] VITALS: BP 132/62
[2020-09-27] MEDS ORDERED: OXYC-517 PO (11:23)
[2020-09-27] MEDS ORDERED: DOK1CAP7 PO (11:23)
[2020-09-27] MEDS ORDERED: BISA10SU PR (11:23)
[2020-09-27] MEDS: FLUDROCORTISONE ACETATE 0.1 MG TAB PO SCH (12:34)
[2020-09-27 14:00] VITALS: BP 120/62
[2020-09-27] MEDS: RIVAROXABAN 15 MG TAB (XARELTO) PO SCH (17:16)
== END 2020-09-27 17:45 | DRG 481 ==
LOC: M ED 14:52 → EDBD 14:52 → M ED INP 16:39 → ENRESERV 18:51 → M MS5PR 20:35
PROVIDERS: ADMIT Internal Medicine; ATTEND Internal Medicine
PROC: 0QS706Z Reposition Left Upper Femur with Intramedullary Internal Fixation Device, Open Approach (ICD-10-PCS; principal; 2020-09-23 17:00)
PROC: 30233N1 Transfusion of Nonautologous Red Blood Cells into Peripheral Vein, Percutaneous Approach (ICD-10-PCS; 2020-09-25)
DX: S72.142A Displaced intertrochanteric fracture of left femur, initial encounter for closed fracture (principal); I48.20 Chronic atrial fibrillation, unspecified; D62 Acute posthemorrhagic anemia; I10 Essential (primary) hypertension; E78.5 Hyperlipidemia, unspecified; Z79.01 Long term (current) use of anticoagulants; Z79.899 Other long term (current) drug therapy; Z20.822 Contact with and (suspected) exposure to COVID-19; Z88.8 Allergy status to other drugs, medicaments and biological substances; W01.0XXA Fall on same level from slipping, tripping and stumbling without subsequent striking against object, initial encounter; Y92.009 Unspecified place in unspecified non-institutional (private) residence as the place of occurrence of the external cause; Z95.0 Presence of cardiac pacemaker

== ENCOUNTER 2020-09-27 12:59 | Inpatient (IN) | payer MEDICARE, BC ==
[~2020-09-27] VITALS: Ht 175.3 cm; Wt 69.9 kg
[~2020-09-27 12:59] MED LIST: AMLO1TAB24 PO; AMLO2.5T3 PO; ATOR1TAB19 PO; BISA10SU PR; DOK1CAP7 PO; FLUD0.1T PO; LOSA50TA88 PO; OXYC-517 PO; XARE15TA PO
[2020-09-27] MEDS ORDERED: BISACODYL 10 MG SUPP PR PRN (15:45)
[2020-09-27 17:50] VITALS: BP 165/78
[2020-09-27] MEDS ORDERED: PILL CUTTER 1 EACH XX PRN (18:15)
[2020-09-27 20:00] VITALS: BP 119/63
[2020-09-27] MEDS: DOCUSATE SODIUM 100MG CAPSULE PO SCH (21:26)
[2020-09-27] MEDS: SENNA 8.6 MG TAB (SENOKOT) PO SCH (21:26)
[2020-09-27] MEDS: ACETAMINOPHEN 500 MG TAB PO SCH (21:26)
[2020-09-27] MEDS: LOSARTAN 25 MG TAB PO SCH (21:27)
[2020-09-27] MEDS: REMEDY PHYTOPLEX Z-GUARD PASTE 113GM TUBE (FROM STOREROOM PRODUCT) TOP SCH (21:27)
[2020-09-28 05:41] VITALS: BP 123/61
[2020-09-28 06:50] LABS: BASO % 0.4 % (0.0-1.0); EOS # 0.4 10^3/uL (0.0-0.5); EOS % 5.4 % (0.0-3.0); HEMATOCRIT 29.4 % (42.0-52.0); HEMOGLOBIN 9.3 g/dl (13.5-17.5); LYMPH # 1.5 10^3/uL (1.5-5.0); LYMPH % 19.2 % (24.0-44.0); MEAN CORPUSCULAR HEMOGLOBIN 31.1 pg (27.0-33.0); MEAN CORPUSCULAR HGB CONC 31.6 g/dl (32.0-36.5); MEAN CORPUSCULAR VOLUME 98.3 fl (80.0-96.0); MONO # 0.9 10^3/uL (0.0-0.8); NEUTROPHILS # 4.9 10^3/uL (1.5-8.5); NEUTROPHILS % 63.4 % (36.0-66.0); PLATELET COUNT, AUTOMATED 210 10^3/uL (150-450); RED BLOOD COUNT 2.99 10^6/uL (4.30-6.10); WHITE BLOOD COUNT 7.8 10^3/uL (4.0-10.0)
[2020-09-28 07:19] LABS: ALT/SGPT 34 U/L (12-78); BILIRUBIN,TOTAL 1.6 MG/DL (0.2-1.0); BLOOD UREA NITROGEN 33 MG/DL (7-18); CALCIUM LEVEL 8.1 MG/DL (8.8-10.2); CARBON DIOXIDE LEVEL 29 MEQ/L (21-32); CHLORIDE LEVEL 108 MEQ/L (98-107); GLOMERULAR FILTRATION RATE > 60.0 (>35); GLUCOSE, FASTING 94 MG/DL (70-100); POTASSIUM SERUM 4.4 MEQ/L (3.5-5.1); SODIUM LEVEL 141 MEQ/L (136-145); TOTAL PROTEIN 5.8 GM/DL (6.4-8.2)
--- NOTE | 2020-09-28 08:02 | HPEPDOC ---
Territory Representative Note DATE OF ADMISSION: 09-27-20 DATE OF SERVICE: 09-28-20 TIME OF ADMISSION: Please refer to physician's admission order. SOURCE OF ADMISSION INFORMATION: [facility] record and patient CHIEF COMPLAINT: left hip fracture HISTORY OF PRESENT ILLNESS: 85 M pmh HTN. HLD, afib on xarelto, pacemaker who fell at home and presented to [facility] ED on 09-21-20 with left hip pain. Imaging revealed Mildly displaced intertrochanteric fracture proximal left femur. He was evaluated by orthopedics and underwent a left hip ORIF on 09-23-20 which was complicated by post-op anemia and pain. Additionally he developed shortness of breath with CT chest on 09-24-20 showing, CHF pattern. Cardiomegaly with pacemaker. Small bilateral pleural effusions and altered mental status with CTH negative for acute pathology. He was evaluated by therapy and found to have impairments in mobility and ADLs below his prior level of function and deemed medically appropriate for discharge to ARU on 09-27-20. REVIEW OF SYSTEMS: The following is a completed review of systems and has been reviewed. Review of systems otherwise unremarkable. PAIN: Patient self reports left hip pain EYES: No recent vision changes EARS, NOSE, & THROAT: No throat pain, or dysphagia, or rhinorrhea CARDIOVASCULAR: Denies chest pain or palpitations PULMONARY: Denies shortness of breath GASTROINTESTINAL: Denies constipation/diarrhea GENITOURINARY: denies dysuria MUSCULOSKELETAL: left hip fracture NEUROLOGICAL: denies paresthesias HEMATOLOGICAL: +anemia SKIN: left hip incision PSYCHIATRIC: Unremarkable All other review of systems found to be negative. PAST MEDICAL HISTORY: as per HPI PAST SURGICAL HISTORY: as per [facility] ALLERGIES: Please see below. MEDICATIONS: Please see below. SOCIAL HISTORY: no etoh/illicit drugs/smoking DIET: 2 gram Na PHYSICAL EXAMINATION: VITAL SIGNS: Please see below. GENERAL: Pleasant and cooperative. No acute distress. HEENT: PERRL. Extraocular movements intact. Clear conjunctiva CARDIOVASCULAR: Regular rate and rhythm. No murmurs, rubs, or gallops LUNGS: Clear to auscultation bilaterally. No wheezes. No rhonchi ABDOMEN: Soft, nontender, nondistended. Positive bowel sounds. Normal active bowel sounds NEUROLOGICAL: Alert and oriented times three. Cranial nerves II through XII grossly intact. Sensation grossly intact EXTREMITIES: 5\5 strength bilateral upper extremities. 5-\5 strength right lower extremity. 5-/5 strength in left ankle DF and EHL (limited due to surgery) SKIN: left hip induration and ecchymosis LABORATORY DATA: Please see below. IMAGING: Imaging documentation personally reviewed by record FUNCTIONAL STATUS: Premorbid: Independent with all activities of daily life as well as mobility On Admission: Min-Mod assist for functional transfers, ambulation, bed mobility, dressing, toileting GOALS:Mod-I bed mobility, functional transfers, ambulation, dressing, toileting, bathing ASSESSMENT:85-year-old M with past medical history of Afib with PM who presents status post fall with left hip fracture PLAN: 1.Rehab- PT/OT advance mobility and ADls, strengthen/stretch/maintain ROM all 4 limbs 2. Neuro- monitor for delirium 3. Ortho- s/p left hip ORIF 09-23-20 - WBAT, on xalelto for Afib, f/u ortho 2 weeks 4. CArdiac- hx of Afib with pacemaker on xarelto and digoxin - HTN on amlodipine and cozaar with orthostatic hypotension? on florinef, will monitor BPs and consider stopping antihypertensives altogether 5. Resp- monitor for infection 6. HEme- post-op anemia consider transfusion if Hgb <8 7. GI ppx- protonix 8. DVT ppx- on xarelto 9. Pain- tylenol ice, oxycodone 10. - monitor PVRs 11. Dispo- TBD POST ADMISSION PHYSICIAN EVALUATION: Medical and functional status: Description of medical status, medical assessment: As above. Rehabilitation diagnosis and current and prior cold morbid medical conditions as above. Risk of complications and plans to mitigate them as above. Description of functional status current status is as above. Prior status as above. Status compared to preadmission: There are no clinically significant differences between the patient's current status and the information described on the preadmission screening document. Treatment plan anticipated: Treatment plan is as described above. Required disciplines including physical therapy, occupational therapy, others as noted above Intensity of services:3 hours a day, 6 days a week. Special considerations: There are no specific special or safety considerations that would likely preclude immediate implementation of an intensive rehabilitation program or subsequently influence the plan of care. ATTESTATION: Considering all the information above, it is my best judgment that this patient requires intensive rehabilitation therapy as described above and an inpatient hospital environment due to the complexity of nursing, medical, and rehabilitation needs required by the patient. Furthermore, this patient can reasonably be expected to participate in an benefit from an inpatient rehabilitation stay with an interdisciplinary team approach to the delivery of rehabilitation care under the direction and supervision of rehabilitation physician. PROGNOSIS: good ESTIMATED LENGTH OF STAY:12-14 days. PROJECTED DISCHARGE DESTINATION: Home with family support and any durable medical equipment required to increase functional safety and mobility TIME SPENT COUNSELING AND COORDINATING INITIAL CARE: Greater than 70 minutes. Vital Signs Vital Sign - Last 24 Hours 09/27/20 09/27/20 09/27/20 09/28/20 17:50 20:00 21:27 05:41 Temp 97.6 99.7 98.2 Pulse 68 88 68 Resp 18 19 17 B/P (MAP) 165/78 (107) 119/63 (81) 119/63 123/61 (81) Pulse Ox 91 94 94 O2 Delivery Room Air Room Air Room Air Laboratory Data CBC/BMP Laboratory Tests 09/28/20 06:26 Labs 24H Laboratory Tests 2 09/28/20 06:26: Immature Granulocyte % (Auto) 0.6, Neutrophils (%) (Auto) 63.4, Lymphocytes (%) (Auto) 19.2L, Monocytes (%) (Auto) 11.0H, Eosinophils (%) (Auto) 5.4H, Basophils (%) (Auto) 0.4, Neutrophils # (Auto) 4.9, Lymphocytes # (Auto) 1.5, Monocytes # (Auto) 0.9H, Eosinophils # (Auto) 0.4, Basophils # (Auto) 0.0, Nucleated Red Blood Cells % (auto) 0.0, Anion Gap 4L, Glomerular Filtration Rate > 60.0, Calcium Level 8.1L, Total Bilirubin 1.6H, Aspartate Amino Transf (AST/SGOT) 68H, Alanine Aminotransferase (ALT/SGPT) 34, Alkaline Phosphatase 144H, Total Protein 5.8L, Albumin 2.0L, Albumin/Globulin Ratio 0.5 Home Medications Scheduled Amlodipine Besylate (Amlodipine Besylate) 2.5 Mg Tablet, 2.5 MG PO Q2D, (Reported) Amlodipine Besylate (Amlodipine Besylate) 5 Mg Tablet, 5 MG PO Q2D, (Reported) Atorvastatin Calcium (Atorvastatin Calcium) 10 Mg Tablet, 10 MG PO Q2D, (Reported) Fludrocortisone Acetate (Fludrocortisone Acetate) 0.1 Mg Tablet, 0.1 MG PO Q2D, (Reported) Losartan Potassium (Losartan Potassium) 50 Mg Tablet, 50 MG PO QHS, (Reported) Rivaroxaban (Xarelto) 15 Mg Tablet, 15 MG PO DAILY, (Reported) Scheduled PRN Bisacodyl (Bisacodyl) 10 Mg Supp.rect, 10 MG [place] DAILYPRN PRN for CONSTIPATION Docusate Sodium (Dok) 100 Mg Capsule, 100 MG PO BIDP PRN for CONSTIPATION Oxycodone HCl (Oxycodone HCl) 5 Mg Tablet, 5 MG PO Q6HP PRN for PAIN 5-7 Allergies Coded Allergies: tamsulosin (Verified Allergy, Intermediate, hives, 09/21/20) hydrochlorothiazide (Verified Adverse Reaction, Intermediate, pancreatitis, 09/21/20) A-FIB/CHADSVASC A-FIB History Current/History of A-Fib/PAF?: Yes Current PO Anticoag Therapy: Yes MINI CHAVARRIA MD September 28, 2020 08:02
[2020-09-28] MEDS ORDERED: amLODIPine 5 MG TAB PO SCH (09:00)
[2020-09-28 09:30] VITALS: BP 108/61
[2020-09-28] MEDS: PANTOPRAZOLE 40MG TAB (PROTONIX) PO SCH (09:30)
[2020-09-28] MEDS: ACETAMINOPHEN 500 MG TAB PO SCH ×3 (09:30→20:24)
[2020-09-28] MEDS: DOCUSATE SODIUM 100MG CAPSULE PO SCH ×2 (09:30→20:25)
[2020-09-28] MEDS: REMEDY PHYTOPLEX Z-GUARD PASTE 113GM TUBE (FROM STOREROOM PRODUCT) TOP SCH ×3 (09:31→20:25)
[2020-09-28] MEDS: ATORVASTATIN 10 MG TAB PO SCH (13:28)
[2020-09-28 14:00] VITALS: BP 152/72
[2020-09-28] MEDS: oxyCODONE 5MG TAB PO PRN ×2 (14:49→20:24)
[2020-09-28] MEDS: RIVAROXABAN 15 MG TAB (XARELTO) PO SCH (17:05)
--- NOTE | 2020-09-28 18:37 | IPNPDOC ---
Subjective Date Seen The patient was seen on 09/28/20. Subjective Chief Complaint/HPI No complaints today. Just feels tired after PT. Had 3 bowel movements. Objective Physical Examination General Exam: Positive: Alert, Cooperative, No Acute Distress Eye Exam: Positive: PERRLA, Conjunctiva & lids normal, EOMI; Negative: Sclera icteric ENT Exam: Positive: Atraumatic, Mucous membr. moist/pink, Pharynx Normal Neck Exam: Positive: Supple; Negative: JVD, thyromegaly Chest Exam: Positive: Clear to auscultation, Normal air movement Heart Exam: Positive: Rate Normal, Irregular Rhythm, Normal S1, Normal S2 Abdomen Exam: Positive: Normal bowel sounds, Soft; Negative: Tenderness, Hepatospenomegaly Extremity Exam: Positive: Edema (left leg); Negative: Clubbing, Cyanosis Assessment /Plan Assessment 85 yo male with left hip fracture after mechanical fall s/p ORIF on 09/24/20 now in ARU for continued rehab. Left Hip intertrochanteric fracture s/p mechanical fall. S/P ORIF on 09/24/20 Pain control with tylenol, oxycodone DVT prophylaxis on xarelto PT/OT as per ARU Anemia acute blood loss anemia in the setting of femur fx requiring surgical repair hh stable HTN On amlodipine and losartan at home now started on low dose losartan and add meds as needed HLD atorvastatin Chronic afib rate controlled Xarelto Orthostatic hypotension on fludrocortisone. Pacemaker in place due to slow heart rate with afib now with mostly paced Plan/VTE VTE Prophylaxis Ordered?: Yes VS, I&O, 24H, Fishbone Vital Signs/I&O Vital Signs Date Time Temp Pulse Resp B/P (MAP) Pulse Ox O2 Delivery O2 Flow Rate FiO2 09/28/20 15:19 18 09/28/20 14:00 97.8 64 152/72 (98) 97 Room Air I&O- Last 24 Hours up to 6 AM 09/28/20 06:00 Intake Total 120 ml Output Total 1175 ml Balance -1055 ml Laboratory Data 24H LABS Laboratory Tests 2 09/28/20 06:26: Immature Granulocyte % (Auto) 0.6, Neutrophils (%) (Auto) 63.4, Lymphocytes (%) (Auto) 19.2L, Monocytes (%) (Auto) 11.0H, Eosinophils (%) (Auto) 5.4H, Basophils (%) (Auto) 0.4, Neutrophils # (Auto) 4.9, Lymphocytes # (Auto) 1.5, Monocytes # (Auto) 0.9H, Eosinophils # (Auto) 0.4, Basophils # (Auto) 0.0, Nucleated Red Blood Cells % (auto) 0.0, Anion Gap 4L, Glomerular Filtration Rate > 60.0, Calcium Level 8.1L, Total Bilirubin 1.6H, Aspartate Amino Transf (AST/SGOT) 68H, Alanine Aminotransferase (ALT/SGPT) 34, Alkaline Phosphatase 144H, Total Protein 5.8L, Albumin 2.0L, Albumin/Globulin Ratio 0.5 CBC/BMP Laboratory Tests 09/28/20 06:26 VERNA SANCHEZ MD September 28, 2020 17:38
[2020-09-28 20:00] VITALS: BP 122/62
[2020-09-28] MEDS: SENNA 8.6 MG TAB (SENOKOT) PO SCH (20:24)
[2020-09-28] MEDS: LOSARTAN 25 MG TAB PO SCH (20:25)
[2020-09-29 05:42] VITALS: BP 157/53
[2020-09-29 06:56] LABS: BASO % 0.4 % (0.0-1.0); EOS # 0.5 10^3/uL (0.0-0.5); EOS % 5.5 % (0.0-3.0); HEMATOCRIT 26.6 % (42.0-52.0); HEMOGLOBIN 8.6 g/dl (13.5-17.5); LYMPH # 1.2 10^3/uL (1.5-5.0); LYMPH % 15.1 % (24.0-44.0); MEAN CORPUSCULAR HEMOGLOBIN 31.7 pg (27.0-33.0); MEAN CORPUSCULAR HGB CONC 32.3 g/dl (32.0-36.5); MEAN CORPUSCULAR VOLUME 98.2 fl (80.0-96.0); MONO # 0.7 10^3/uL (0.0-0.8); MONO % 8.5 % (2.0-8.0); NEUTROPHILS # 5.7 10^3/uL (1.5-8.5); NEUTROPHILS % 69.5 % (36.0-66.0); PLATELET COUNT, AUTOMATED 230 10^3/uL (150-450); RED BLOOD COUNT 2.71 10^6/uL (4.30-6.10); WHITE BLOOD COUNT 8.2 10^3/uL (4.0-10.0)
[2020-09-29 07:25] LABS: BLOOD UREA NITROGEN 33 MG/DL (7-18); CALCIUM LEVEL 8.2 MG/DL (8.8-10.2); CARBON DIOXIDE LEVEL 30 MEQ/L (21-32); CHLORIDE LEVEL 110 MEQ/L (98-107); CREATININE FOR GFR 1.01 MG/DL (0.70-1.30); GLOMERULAR FILTRATION RATE > 60.0 (>35); GLUCOSE, FASTING 98 MG/DL (70-100); POTASSIUM SERUM 4.7 MEQ/L (3.5-5.1); SODIUM LEVEL 143 MEQ/L (136-145)
[2020-09-29] MEDS: DOCUSATE SODIUM 100MG CAPSULE PO SCH ×2 (08:34→21:45)
[2020-09-29] MEDS: ACETAMINOPHEN 500 MG TAB PO SCH ×3 (08:34→21:45)
[2020-09-29] MEDS: PANTOPRAZOLE 40MG TAB (PROTONIX) PO SCH (08:34)
[2020-09-29] MEDS: REMEDY PHYTOPLEX Z-GUARD PASTE 113GM TUBE (FROM STOREROOM PRODUCT) TOP SCH ×3 (08:35→21:45)
[2020-09-29] MEDS ORDERED: FLUDROCORTISONE ACETATE 0.1 MG TAB PO SCH (12:00)
[2020-09-29 14:00] VITALS: BP 115/57
[2020-09-29] MEDS: RIVAROXABAN 15 MG TAB (XARELTO) PO SCH (17:39)
[2020-09-29 20:15] VITALS: BP 146/74
--- NOTE | 2020-09-29 20:53 | IPNPDOC ---
PM&R Progress Note DATE OF SERVICE: September 29, 2020 Pediatric Dental Assistant Progress Note Subjective: Patient reporting he feels good and that he is moving ok with left hip pain that is controlled well enough. REVIEW OF SYSTEMS: The following is a completed review of systems and has been reviewed. Review of systems otherwise unremarkable. PAIN: Patient self reports left hip pain EYES: No recent vision changes EARS, NOSE, & THROAT: No throat pain, or dysphagia, or rhinorrhea CARDIOVASCULAR: Denies chest pain or palpitations PULMONARY: Denies shortness of breath GASTROINTESTINAL: Denies constipation/diarrhea GENITOURINARY: denies dysuria MUSCULOSKELETAL: left hip fracture NEUROLOGICAL: denies paresthesias HEMATOLOGICAL: +anemia SKIN: left hip incision PSYCHIATRIC: Unremarkable All other review of systems found to be negative. PHYSICAL EXAMINATION: VITAL SIGNS: Please see below. GENERAL: Pleasant and cooperative. No acute distress. HEENT: PERRL. Extraocular movements intact. Clear conjunctiva CARDIOVASCULAR: Regular rate and rhythm. No murmurs, rubs, or gallops LUNGS: Clear to auscultation bilaterally. No wheezes. No rhonchi ABDOMEN: Soft, nontender, nondistended. Positive bowel sounds. Normal active bowel sounds NEUROLOGICAL: Alert and oriented times three. Cranial nerves II through XII grossly intact. Sensation grossly intact EXTREMITIES: 5\5 strength bilateral upper extremities. 5-\5 strength right lower extremity. 5-/5 strength in left ankle DF and EHL (limited due to surgery) SKIN: left hip induration and ecchymosis ASSESSMENT:85-year-old M with past medical history of Afib with PM who presents status post fall with left hip fracture PLAN: 1.Rehab- PT/OT advance mobility and ADls, strengthen/stretch/maintain ROM all 4 limbs 2. Neuro- monitor for delirium 3. Ortho- s/p left hip ORIF 09-23-20 - WBAT, on xarelto for Afib, f/u ortho 2 weeks 4. CArdiac- hx of Afib with pacemaker on xarelto, not on beta-viet/digoxin- f/u cardiology on dc - HTN on amlodipine and cozaar with orthostatic hypotension? on florinef q2d, patient reporting he does not take Florinef at home and that his systolic blood pressure fluctuates from 150 with exertion to low 90s where he is symptomatic- will d/c cozaar and florinef, trial amlodipine 2.5mg BID with holding parameters 5. Resp- monitor for infection 6. HEme- post-op anemia consider transfusion if Hgb <8 7. GI ppx- protonix 8. DVT ppx- on xarelto 9. Pain- tylenol ice, oxycodone 10. - monitor PVRs 11. Dispo- TBD Allergies Coded Allergies: tamsulosin (Verified Allergy, Intermediate, hives, 09/21/20) hydrochlorothiazide (Verified Adverse Reaction, Intermediate, pancreatitis, 09/21/20) Vital Signs Vital Signs Date Time Temp Pulse Resp B/P (MAP) Pulse Ox O2 Delivery O2 Flow Rate FiO2 09/29/20 14:00 97.7 68 18 115/57 (76) 99 Room Air Laboratory Data CBC/BMP Laboratory Tests 09/29/20 06:39 Labs 24H Laboratory Tests 2 09/29/20 06:39: Immature Granulocyte % (Auto) 1.0, Neutrophils (%) (Auto) 69.5H, Lymphocytes (%) (Auto) 15.1L, Monocytes (%) (Auto) 8.5H, Eosinophils (%) (Auto) 5.5H, Basophils (%) (Auto) 0.4, Neutrophils # (Auto) 5.7, Lymphocytes # (Auto) 1.2L, Monocytes # (Auto) 0.7, Eosinophils # (Auto) 0.5, Basophils # (Auto) 0.0, Nucleated Red Blood Cells % (auto) 0.0, Anion Gap 3L, Glomerular Filtration Rate > 60.0, Calcium Level 8.2L 09/29/20 12:00: Bedside Glucose (Misc Panel) 100 Current Medications Current Medications Current Medications Medications (Trade) Dose Ordered Sig/[place] Route PRN Reason Start Time Stop Time Status Last Admin Dose Admin Acetaminophen (Tylenol Tab) 1,000 mg TID PO 09/27/20 21:00 09/29/20 17:40 Amlodipine Besylate (Norvasc) 2.5 mg BID PO 09/29/20 21:00 Amlodipine Besylate (Norvasc) 5 mg DAILY PO 09/28/20 09:00 09/28/20 12:23 DC Atorvastatin Calcium (Lipitor) 10 mg Q2D@1200 PO 09/28/20 12:00 09/28/20 13:28 Bisacodyl (Dulcolax Suppository) 10 mg DAILYPRN PRN [place] CONSTIPATION 09/27/20 15:45 Docusate Sodium (Colace) 100 mg BID PO 09/27/20 21:00 09/29/20 08:34 Fludrocortisone Acetate (Florinef) 0.1 mg Q2D@1200 PO 09/29/20 12:00 09/29/20 14:31 DC 09/29/20 12:14 Losartan Potassium (Cozaar) 12.5 mg QHS PO 09/27/20 21:00 09/29/20 14:31 DC 09/28/20 20:25 Oxycodone HCl (Roxicodone, Oxyir) 5 mg Q4HP PRN PO PAIN 09/27/20 15:45 09/28/20 20:24 Pantoprazole Sodium (Protonix) 40 mg DAILY PO 09/28/20 09:00 09/29/20 08:34 Rivaroxaban (Xarelto) 15 mg DAILY@1800 PO 09/28/20 18:00 09/29/20 17:39 Senna (Senokot) 1 tab QHS PO 09/27/20 21:00 09/28/20 20:24 MINI CHAVARRIA MD September 29, 2020 20:53
[2020-09-29] MEDS: SENNA 8.6 MG TAB (SENOKOT) PO SCH (21:45)
[2020-09-30 05:54] VITALS: BP 150/77
[2020-09-30] MEDS: PANTOPRAZOLE 40MG TAB (PROTONIX) PO SCH (08:58)
[2020-09-30] MEDS: DOCUSATE SODIUM 100MG CAPSULE PO SCH ×2 (08:58→20:45)
[2020-09-30] MEDS: ACETAMINOPHEN 500 MG TAB PO SCH ×3 (08:59→20:45)
[2020-09-30] MEDS: REMEDY PHYTOPLEX Z-GUARD PASTE 113GM TUBE (FROM STOREROOM PRODUCT) TOP SCH ×3 (08:59→20:46)
[2020-09-30] MEDS: oxyCODONE 5MG TAB PO PRN (09:55)
[2020-09-30] MEDS: ATORVASTATIN 10 MG TAB PO SCH (12:14)
[2020-09-30 14:00] VITALS: BP 130/63
[2020-09-30] MEDS: RIVAROXABAN 15 MG TAB (XARELTO) PO SCH (17:28)
--- NOTE | 2020-09-30 18:01 | IPNPDOC ---
PM&R Progress Note DATE OF SERVICE: September 30, 2020 Recreation Director Progress Note Subjective: Patient reporting he is having some burning with urination and that his left leg has been aching at night making it difficult to sleep. REVIEW OF SYSTEMS: The following is a completed review of systems and has been reviewed. Review of systems otherwise unremarkable. PAIN: Patient self reports left hip pain EYES: No recent vision changes EARS, NOSE, & THROAT: No throat pain, or dysphagia, or rhinorrhea CARDIOVASCULAR: Denies chest pain or palpitations PULMONARY: Denies shortness of breath GASTROINTESTINAL: Denies constipation/diarrhea GENITOURINARY: + dysuria MUSCULOSKELETAL: left hip fracture NEUROLOGICAL: denies paresthesias HEMATOLOGICAL: +anemia SKIN: left hip incision PSYCHIATRIC: Unremarkable All other review of systems found to be negative. PHYSICAL EXAMINATION: VITAL SIGNS: Please see below. GENERAL: Pleasant and cooperative. No acute distress. HEENT: PERRL. Extraocular movements intact. Clear conjunctiva CARDIOVASCULAR: Regular rate and rhythm. No murmurs, rubs, or gallops LUNGS: Clear to auscultation bilaterally. No wheezes. No rhonchi ABDOMEN: Soft, nontender, nondistended. Positive bowel sounds. Normal active bowel sounds NEUROLOGICAL: Alert and oriented times three. Cranial nerves II through XII grossly intact. Sensation grossly intact EXTREMITIES: 5\5 strength bilateral upper extremities. 5-\5 strength right lower extremity. 5-/5 strength in left ankle DF and EHL (limited due to surgery) SKIN: left hip induration and ecchymosis ASSESSMENT:85-year-old M with past medical history of Afib with PM who presents status post fall with left hip fracture PLAN: 1.Rehab- PT/OT advance mobility and ADls, strengthen/stretch/maintain ROM all 4 limbs- ambulating with RW 2. Neuro- monitor for delirium 3. Ortho- s/p left hip ORIF 09-23-20 - WBAT, on xarelto for Afib, f/u ortho 2 weeks 4. CArdiac- hx of Afib with pacemaker on xarelto, not on beta-viet/digoxin- f/u cardiology on dc - HTN, c/u amlodipine 2.5mg BID with holding parameters 5. Resp- monitor for infection 6. HEme- post-op anemia consider transfusion if Hgb <8 7. GI ppx- protonix 8. DVT ppx- on xarelto 9. Pain- tylenol ice, oxycodone -patient reporting his leg pain is keeping him up at night due to throbbing- will trial gabapentin 200mg qHS 10. - monitor PVRs, patient reporting burning with urination will order U/Ucx 11. Dispo- TBD Allergies Coded Allergies: tamsulosin (Verified Allergy, Intermediate, hives, 09/21/20) hydrochlorothiazide (Verified Adverse Reaction, Intermediate, pancreatitis, 09/21/20) Vital Signs Vital Signs Date Time Temp Pulse Resp B/P (MAP) Pulse Ox O2 Delivery O2 Flow Rate FiO2 09/30/20 14:00 97.3 62 17 130/63 (85) 99 Room Air Laboratory Data Labs 24H Laboratory Tests 2 09/30/20 13:12: Urine Color YELLOW, Urine Appearance CLEAR, Urine pH 5.0, Urine Specific [place] 1.025, Urine Protein NEGATIVE, Urine Glucose (UA) NEGATIVE, Urine Ketones NEGATIVE, Urine Blood NEGATIVE, Urine Nitrite NEGATIVE, Urine Bilirubin NEGATIVE, Urine Urobilinogen 4.0H, Urine Leukocyte Esterase NEGATIVE, Urine WBC (Auto) 1, Urine RBC (Auto) 0, Urine Hyaline Casts (Auto) 0, Urine Bacteria (Auto) NEGATIVE, Urine Squamous Epithelial Cells 0, Urine Sperm (Auto) Current Medications Current Medications Current Medications Medications (Trade) Dose Ordered Sig/[place] Route PRN Reason Start Time Stop Time Status Last Admin Dose Admin Acetaminophen (Tylenol Tab) 1,000 mg TID PO 09/27/20 21:00 09/30/20 15:18 Amlodipine Besylate (Norvasc) 2.5 mg BID PO 09/29/20 21:00 09/30/20 08:58 Amlodipine Besylate (Norvasc) 5 mg DAILY PO 09/28/20 09:00 09/28/20 12:23 DC Atorvastatin Calcium (Lipitor) 10 mg Q2D@1200 PO 09/28/20 12:00 09/30/20 12:14 Bisacodyl (Dulcolax Suppository) 10 mg DAILYPRN PRN [place] CONSTIPATION 09/27/20 15:45 Docusate Sodium (Colace) 100 mg BID PO 09/27/20 21:00 09/30/20 08:58 Fludrocortisone Acetate (Florinef) 0.1 mg Q2D@1200 PO 09/29/20 12:00 09/29/20 14:31 DC 09/29/20 12:14 Gabapentin (Neurontin) 200 mg QHS PO 09/30/20 21:00 Losartan Potassium (Cozaar) 12.5 mg QHS PO 09/27/20 21:00 09/29/20 14:31 DC 09/28/20 20:25 Oxycodone HCl (Roxicodone, Oxyir) 5 mg Q4HP PRN PO PAIN 09/27/20 15:45 09/30/20 09:55 Pantoprazole Sodium (Protonix) 40 mg DAILY PO 09/28/20 09:00 09/30/20 08:58 Rivaroxaban (Xarelto) 15 mg DAILY@1800 PO 09/28/20 18:00 09/30/20 17:28 Senna (Senokot) 1 tab QHS PO 09/27/20 21:00 09/29/20 21:45 MINI CHAVARRIA MD September 30, 2020 18:01
[2020-09-30 20:17] VITALS: BP 144/74
[2020-09-30] MEDS: SENNA 8.6 MG TAB (SENOKOT) PO SCH (20:46)
[2020-09-30] MEDS ORDERED: GABAPENTIN 100 MG CAP PO SCH (21:00)
[2020-10-01 06:04] VITALS: BP 150/79
[2020-10-01] MEDS: DOCUSATE SODIUM 100MG CAPSULE PO SCH ×2 (08:57→20:57)
[2020-10-01] MEDS: PANTOPRAZOLE 40MG TAB (PROTONIX) PO SCH (08:57)
[2020-10-01] MEDS: ACETAMINOPHEN 500 MG TAB PO SCH ×4 (08:58→20:59)
[2020-10-01] MEDS: REMEDY PHYTOPLEX Z-GUARD PASTE 113GM TUBE (FROM STOREROOM PRODUCT) TOP SCH ×3 (09:00→20:59)
[2020-10-01 09:37] LABS: BASO % 0.5 % (0.0-1.0); EOS # 0.3 10^3/uL (0.0-0.5); EOS % 3.3 % (0.0-3.0); HEMATOCRIT 28.6 % (42.0-52.0); HEMOGLOBIN 9.1 g/dl (13.5-17.5); LYMPH # 1.1 10^3/uL (1.5-5.0); LYMPH % 13.7 % (24.0-44.0); MEAN CORPUSCULAR HEMOGLOBIN 31.5 pg (27.0-33.0); MEAN CORPUSCULAR HGB CONC 31.8 g/dl (32.0-36.5); MONO # 0.7 10^3/uL (0.0-0.8); NEUTROPHILS % 73.4 % (36.0-66.0); PLATELET COUNT, AUTOMATED 290 10^3/uL (150-450); RED BLOOD COUNT 2.89 10^6/uL (4.30-6.10); WHITE BLOOD COUNT 8.1 10^3/uL (4.0-10.0)
[2020-10-01 10:08] LABS: BLOOD UREA NITROGEN 30 MG/DL (7-18); CALCIUM LEVEL 8.1 MG/DL (8.8-10.2); CARBON DIOXIDE LEVEL 29 MEQ/L (21-32); CHLORIDE LEVEL 110 MEQ/L (98-107); CREATININE FOR GFR 1.04 MG/DL (0.70-1.30); GLOMERULAR FILTRATION RATE > 60.0 (>35); GLUCOSE, FASTING 103 MG/DL (70-100); POTASSIUM SERUM 4.6 MEQ/L (3.5-5.1); SODIUM LEVEL 143 MEQ/L (136-145)
[2020-10-01] MEDS: METOPROLOL TART 12.5 MG PER 1/2 TAB PO SCH ×2 (10:50→20:58)
[2020-10-01] MEDS: oxyCODONE 5MG TAB PO PRN ×2 (10:51→20:59)
[2020-10-01 14:00] VITALS: BP 135/70
[2020-10-01] MEDS: RIVAROXABAN 15 MG TAB (XARELTO) PO SCH (17:37)
[2020-10-01] MEDS: GABAPENTIN 100 MG CAP PO SCH ×2 (17:38→20:57)
[2020-10-01 20:00] VITALS: BP 148/78
[2020-10-01] MEDS: SENNA 8.6 MG TAB (SENOKOT) PO SCH (20:58)
[2020-10-02 05:41] VITALS: BP 160/75
[2020-10-02 08:00] VITALS: BP 137/71
[2020-10-02] MEDS: DOCUSATE SODIUM 100MG CAPSULE PO SCH ×2 (08:16→20:32)
[2020-10-02] MEDS: PANTOPRAZOLE 40MG TAB (PROTONIX) PO SCH (08:17)
[2020-10-02] MEDS: GABAPENTIN 100 MG CAP PO SCH ×3 (08:17→20:31)
[2020-10-02] MEDS: FUROSEMIDE 20 MG TAB PO SCH (08:17)
[2020-10-02] MEDS: METOPROLOL TART 12.5 MG PER 1/2 TAB PO SCH ×2 (08:19→20:32)
[2020-10-02] MEDS: ACETAMINOPHEN 500 MG TAB PO SCH ×3 (08:19→20:37)
[2020-10-02] MEDS: REMEDY PHYTOPLEX Z-GUARD PASTE 113GM TUBE (FROM STOREROOM PRODUCT) TOP SCH ×3 (08:20→20:37)
[2020-10-02] MEDS: ATORVASTATIN 10 MG TAB PO SCH (12:26)
[2020-10-02 14:00] VITALS: BP 135/66
[2020-10-02] MEDS: oxyCODONE 5MG TAB PO PRN ×2 (15:12→20:34)
[2020-10-02] MEDS: RIVAROXABAN 15 MG TAB (XARELTO) PO SCH (17:21)
[2020-10-02 20:00] VITALS: BP 143/68
[2020-10-02] MEDS: SENNA 8.6 MG TAB (SENOKOT) PO SCH (20:31)
[2020-10-03 05:25] VITALS: BP 133/80
[2020-10-03 09:00] VITALS: BP 135/68
[2020-10-03] MEDS: REMEDY PHYTOPLEX Z-GUARD PASTE 113GM TUBE (FROM STOREROOM PRODUCT) TOP SCH ×3 (09:00→20:55)
[2020-10-03] MEDS: PANTOPRAZOLE 40MG TAB (PROTONIX) PO SCH (09:33)
[2020-10-03] MEDS: DOCUSATE SODIUM 100MG CAPSULE PO SCH ×2 (09:33→20:53)
[2020-10-03] MEDS: FUROSEMIDE 20 MG TAB PO SCH (09:33)
[2020-10-03] MEDS: GABAPENTIN 100 MG CAP PO SCH ×3 (09:33→20:53)
[2020-10-03] MEDS: METOPROLOL TART 12.5 MG PER 1/2 TAB PO SCH ×2 (09:34→20:54)
[2020-10-03] MEDS: ACETAMINOPHEN 500 MG TAB PO SCH ×3 (09:34→20:55)
[2020-10-03 14:00] VITALS: BP 132/67
[2020-10-03] MEDS: RIVAROXABAN 15 MG TAB (XARELTO) PO SCH (18:22)
[2020-10-03 20:30] VITALS: BP 145/75
[2020-10-03] MEDS: SENNA 8.6 MG TAB (SENOKOT) PO SCH (20:54)
[2020-10-03] MEDS: oxyCODONE 5MG TAB PO PRN (20:55)
[2020-10-04 06:32] VITALS: BP 170/79
[2020-10-04 07:55] LABS: BASO % 0.4 % (0.0-1.0); EOS # 0.3 10^3/uL (0.0-0.5); EOS % 3.2 % (0.0-3.0); HEMATOCRIT 35.2 % (42.0-52.0); HEMOGLOBIN 11.1 g/dl (13.5-17.5); LYMPH # 1.5 10^3/uL (1.5-5.0); LYMPH % 16.3 % (24.0-44.0); MEAN CORPUSCULAR HEMOGLOBIN 31.6 pg (27.0-33.0); MEAN CORPUSCULAR HGB CONC 31.5 g/dl (32.0-36.5); MEAN CORPUSCULAR VOLUME 100.3 fl (80.0-96.0); MONO # 0.7 10^3/uL (0.0-0.8); MONO % 6.9 % (2.0-8.0); NEUTROPHILS # 6.8 10^3/uL (1.5-8.5); NEUTROPHILS % 72.2 % (36.0-66.0); PLATELET COUNT, AUTOMATED 382 10^3/uL (150-450); RED BLOOD COUNT 3.51 10^6/uL (4.30-6.10); WHITE BLOOD COUNT 9.4 10^3/uL (4.0-10.0)
[2020-10-04 08:09] LABS: BLOOD UREA NITROGEN 26 MG/DL (7-18); CALCIUM LEVEL 9.3 MG/DL (8.8-10.2); CARBON DIOXIDE LEVEL 31 MEQ/L (21-32); CHLORIDE LEVEL 102 MEQ/L (98-107); CREATININE FOR GFR 1.03 MG/DL (0.70-1.30); GLOMERULAR FILTRATION RATE > 60.0 (>35); GLUCOSE, FASTING 94 MG/DL (70-100); POTASSIUM SERUM 4.3 MEQ/L (3.5-5.1); SODIUM LEVEL 138 MEQ/L (136-145)
[2020-10-04] MEDS: PANTOPRAZOLE 40MG TAB (PROTONIX) PO SCH (08:09)
[2020-10-04] MEDS: DOCUSATE SODIUM 100MG CAPSULE PO SCH ×2 (08:09→20:57)
[2020-10-04] MEDS: FUROSEMIDE 20 MG TAB PO SCH (08:09)
[2020-10-04] MEDS: GABAPENTIN 100 MG CAP PO SCH ×3 (08:10→20:59)
[2020-10-04] MEDS: ACETAMINOPHEN 500 MG TAB PO SCH ×3 (08:12→20:59)
[2020-10-04] MEDS: METOPROLOL TART 12.5 MG PER 1/2 TAB PO SCH ×2 (08:12→20:58)
[2020-10-04 08:13] VITALS: BP 137/68
[2020-10-04] MEDS: REMEDY PHYTOPLEX Z-GUARD PASTE 113GM TUBE (FROM STOREROOM PRODUCT) TOP SCH ×3 (08:13→21:03)
[2020-10-04] MEDS: ATORVASTATIN 10 MG TAB PO SCH (12:52)
[2020-10-04 14:00] VITALS: BP 135/65
--- NOTE | 2020-10-04 16:55 | REP ---
INDICATION: r/o new fracture/displacement. COMPARISON: Preoperative examination 09/22/2019 TECHNIQUE: AP and frog-lateral views FINDINGS: A femoral neck lag screw and femoral shaft intramedullary sha have been placed since the last exam a fixing a previously described comminuted femoral neck fracture. The alignment is near anatomical. The tip of the lag screw does not breach the hip joint space. The distal aspect of the intramedullary sha does not breach the knee joint. IMPRESSION: Status post ORIF as described above. <Electronically signed by Juan Bradley > 10/04/20 [id number]
[2020-10-04] MEDS: RIVAROXABAN 15 MG TAB (XARELTO) PO SCH (17:37)
[2020-10-04 20:30] VITALS: BP 131/65
[2020-10-04] MEDS: SENNA 8.6 MG TAB (SENOKOT) PO SCH (20:57)
--- NOTE | 2020-10-04 23:02 | IPNPDOC ---
PM&R Progress Note DATE OF SERVICE: October 01, 2020 [employer] Du[employer] Worker Supervisor Progress Note Subjective: Patient reporting the gabapentin helped with his leg pain overnight and that he slept well. He would like to try it during the day. REVIEW OF SYSTEMS: The following is a completed review of systems and has been reviewed. Review of systems otherwise unremarkable. PAIN: Patient self reports left hip pain EYES: No recent vision changes EARS, NOSE, & THROAT: No throat pain, or dysphagia, or rhinorrhea CARDIOVASCULAR: Denies chest pain or palpitations PULMONARY: Denies shortness of breath GASTROINTESTINAL: Denies constipation/diarrhea GENITOURINARY: + dysuria (improved) MUSCULOSKELETAL: left hip fracture NEUROLOGICAL: denies paresthesias HEMATOLOGICAL: +anemia SKIN: left hip incision PSYCHIATRIC: Unremarkable All other review of systems found to be negative. PHYSICAL EXAMINATION: VITAL SIGNS: Please see below. GENERAL: Pleasant and cooperative. No acute distress. HEENT: PERRL. Extraocular movements intact. Clear conjunctiva CARDIOVASCULAR: Regular rate and rhythm. No murmurs, rubs, or gallops LUNGS: Clear to auscultation bilaterally. No wheezes. No rhonchi ABDOMEN: Soft, nontender, nondistended. Positive bowel sounds. Normal active bowel sounds NEUROLOGICAL: Alert and oriented times three. Cranial nerves II through XII grossly intact. Sensation grossly intact EXTREMITIES: 5\5 strength bilateral upper extremities. 5-\5 strength right lower extremity. 5-/5 strength in left ankle DF and EHL (limited due to surgery) LLE edema SKIN: left hip ecchymosis/swelling improving, no induration ASSESSMENT:85-year-old M with past medical history of Afib with PM who presents status post fall with left hip fracture PLAN: 1.Rehab- PT/OT advance mobility and ADls, strengthen/stretch/maintain ROM all 4 limbs- ambulating with RW 2. Neuro- monitor for delirium 3. Ortho- s/p left hip ORIF 09-23-20 - WBAT, on xarelto for Afib, f/u ortho 2 weeks 4. CArdiac- hx of Afib with pacemaker on xarelto, started low dose metoprolol for afib and to help control BPs- f/u cardiology on dc - HTN, c/u amlodipine 2.5mg BID with holding parameters and metoprolol 12.5 mg BID - LLE edema will start lasix 5. Resp- monitor for infection 6. HEme- post-op anemia consider transfusion if Hgb <8 7. GI ppx- protonix 8. DVT ppx- on xarelto 9. Pain- tylenol ice, oxycodone -patient reporting his leg pain is keeping him up at night due to throbbing- gabapentin effective qHS, will add daytime dosing as well 10. - monitor PVRs, patient reporting burning with urination has improved, UA negative 11. Dispo- TBD Allergies Coded Allergies: tamsulosin (Verified Allergy, Intermediate, hives, 09/21/20) hydrochlorothiazide (Verified Adverse Reaction, Intermediate, pancreatitis, 09/21/20) Vital Signs Vital Signs Date Time Temp Pulse Resp B/P (MAP) Pulse Ox O2 Delivery O2 Flow Rate FiO2 10/04/20 20:58 60 131/65 10/04/20 20:30 98.0 18 97 Room Air Laboratory Data CBC/BMP Laboratory Tests 10/04/20 06:59 Labs 24H Laboratory Tests 2 10/04/20 06:59: Immature Granulocyte % (Auto) 1.0, Neutrophils (%) (Auto) 72.2H, Lymphocytes (%) (Auto) 16.3L, Monocytes (%) (Auto) 6.9, Eosinophils (%) (Auto) 3.2H, Basophils (%) (Auto) 0.4, Neutrophils # (Auto) 6.8, Lymphocytes # (Auto) 1.5, Monocytes # (Auto) 0.7, Eosinophils # (Auto) 0.3, Basophils # (Auto) 0.0, Nucleated Red Blood Cells % (auto) 0.0, Anion Gap 5L, Glomerular Filtration Rate > 60.0, Calcium Level 9.3 Current Medications Current Medications Current Medications Medications (Trade) Dose Ordered Sig/[place] Route PRN Reason Start Time Stop Time Status Last Admin Dose Admin Acetaminophen (Tylenol Tab) 1,000 mg TID PO 09/27/20 21:00 10/04/20 20:59 Amlodipine Besylate (Norvasc) 2.5 mg BID PO 09/29/20 21:00 10/04/20 20:59 Amlodipine Besylate (Norvasc) 5 mg DAILY PO 09/28/20 09:00 09/28/20 12:23 DC Atorvastatin Calcium (Lipitor) 10 mg Q2D@1200 PO 09/28/20 12:00 10/04/20 12:52 Bisacodyl (Dulcolax Suppository) 10 mg DAILYPRN PRN [place] CONSTIPATION 09/27/20 15:45 Docusate Sodium (Colace) 100 mg BID PO 09/27/20 21:00 10/04/20 20:57 Fludrocortisone Acetate (Florinef) 0.1 mg Q2D@1200 PO 09/29/20 12:00 09/29/20 14:31 DC 09/29/20 12:14 Furosemide (Lasix) 20 mg DAILY PO 10/02/20 09:00 10/04/20 08:09 Gabapentin (Neurontin) 200 mg QHS PO 09/30/20 21:00 10/01/20 11:49 DC 09/30/20 20:41 Gabapentin (Neurontin) 200 mg TID PO 10/01/20 16:00 10/04/20 20:59 Losartan Potassium (Cozaar) 12.5 mg QHS PO 09/27/20 21:00 09/29/20 14:31 DC 09/28/20 20:25 Metoprolol Tartrate (Lopressor) 12.5 mg BID PO 10/01/20 09:00 10/04/20 20:58 Oxycodone HCl (Roxicodone, Oxyir) 5 mg Q4HP PRN PO PAIN 09/27/20 15:45 10/03/20 20:55 Pantoprazole Sodium (Protonix) 40 mg DAILY PO 09/28/20 09:00 10/04/20 08:09 Rivaroxaban (Xarelto) 15 mg DAILY@1800 PO 09/28/20 18:00 10/04/20 17:37 Senna (Senokot) 1 tab QHS PO 09/27/20 21:00 10/04/20 20:57 MINI CHAVARRIA MD October 04, 2020 23:02
--- NOTE | 2020-10-04 23:05 | IPNPDOC ---
PM&R Progress Note DATE OF SERVICE: October 04, 2020 Recycling Tech Progress Note Subjective: Patient seen in hsi room stating he felt his left hip crack over the weekend while doing leg exercises in bed in therapy and he is having more pain and dif ficulty moving his leg. REVIEW OF SYSTEMS: The following is a completed review of systems and has been reviewed. Review of systems otherwise unremarkable. PAIN: Patient self reports left hip pain EYES: No recent vision changes EARS, NOSE, & THROAT: No throat pain, or dysphagia, or rhinorrhea CARDIOVASCULAR: Denies chest pain or palpitations PULMONARY: Denies shortness of breath GASTROINTESTINAL: Denies constipation/diarrhea GENITOURINARY: + dysuria (improved) MUSCULOSKELETAL: left hip fracture NEUROLOGICAL: denies paresthesias HEMATOLOGICAL: +anemia SKIN: left hip incision PSYCHIATRIC: Unremarkable All other review of systems found to be negative. PHYSICAL EXAMINATION: VITAL SIGNS: Please see below. GENERAL: Pleasant and cooperative. No acute distress. HEENT: PERRL. Extraocular movements intact. Clear conjunctiva CARDIOVASCULAR: Regular rate and rhythm. No murmurs, rubs, or gallops LUNGS: Clear to auscultation bilaterally. No wheezes. No rhonchi ABDOMEN: Soft, nontender, nondistended. Positive bowel sounds. Normal active bowel sounds NEUROLOGICAL: Alert and oriented times three. Cranial nerves II through XII grossly intact. Sensation grossly intact EXTREMITIES: 5\5 strength bilateral upper extremities. 5-\5 strength right lower extremity. 5-/5 strength in left ankle DF and EHL (limited due to surgery) LLE edema (improving) SKIN: left hip ecchymosis/swelling improving, no induration, incision c/d/i ASSESSMENT:85-year-old M with past medical history of Afib with PM who presents status post fall with left hip fracture PLAN: 1.Rehab- PT/OT advance mobility and ADls, strengthen/stretch/maintain ROM all 4 limbs- ambulating with RW 2. Neuro- monitor for delirium 3. Ortho- s/p left hip ORIF 09-23-20 - WBAT, on xarelto for Afib, f/u ortho 2 weeks -fu hip x-ray due to new pain since therapy session over the weekend 4. CArdiac- hx of Afib with pacemaker on xarelto, started low dose metoprolol for afib and to help control BPs- f/u cardiology on dc - HTN, c/u amlodipine 2.5mg BID with holding parameters and metoprolol 12.5 mg BID - LLE edema improving, c/u lasix 5. Resp- monitor for infection 6. HEme- post-op anemia consider transfusion if Hgb <8 7. GI ppx- protonix 8. DVT ppx- on xarelto 9. Pain- tylenol ice, oxycodone, gabapentin 200mg TID 10. - monitor PVRs, patient reporting burning with urination has improved, UA negative 11. Dispo- TBD Allergies Coded Allergies: tamsulosin (Verified Allergy, Intermediate, hives, 09/21/20) hydrochlorothiazide (Verified Adverse Reaction, Intermediate, pancreatiti s, 09/21/20) Vital Signs Vital Signs Date Time Temp Pulse Resp B/P (MAP) Pulse Ox O2 Delivery O2 Flow Rate FiO2 10/04/20 20:58 60 131/65 10/04/20 20:30 98.0 18 97 Room Air Laboratory Data CBC/BMP Laboratory Tests 10/04/20 06:59 Labs 24H Laboratory Tests 2 10/04/20 06:59: Immature Granulocyte % (Auto) 1.0, Neutrophils (%) (Auto) 72.2H, Lymphocytes (%) (Auto) 16.3L, Monocytes (%) (Auto) 6.9, Eosinophils (%) (Auto) 3.2H, Basophils (%) (Auto) 0.4, Neutrophils # (Auto) 6.8, Lymphocytes # (Auto) 1.5, Monocytes # (Auto) 0.7, Eosinophils # (Auto) 0.3, Basophils # (Auto) 0.0, Nucleated Red Blood Cells % (auto) 0.0, Anion Gap 5L, Glomerular Filtration Rate > 60.0, Calcium Level 9.3 Current Medications Current Medications Current Medications Medications (Trade) Dose Ordered Sig/[place] Route PRN Reason Start Time Stop Time Status Last Admin Dose Admin Acetaminophen (Tylenol Tab) 1,000 mg TID PO 09/27/20 21:00 10/04/20 20:59 Amlodipine Besylate (Norvasc) 2.5 mg BID PO 09/29/20 21:00 10/04/20 20:59 Amlodipine Besylate (Norvasc) 5 mg DAILY PO 09/28/20 09:00 09/28/20 12:23 DC Atorvastatin Calcium (Lipitor) 10 mg Q2D@1200 PO 09/28/20 12:00 10/04/20 12:52 Bisacodyl (Dulcolax Suppository) 10 mg DAILYPRN PRN [place] CONSTIPATION 09/27/20 15:45 Docusate Sodium (Colace) 100 mg BID PO 09/27/20 21:00 10/04/20 20:57 Fludrocortisone Acetate (Florinef) 0.1 mg Q2D@1200 PO 09/29/20 12:00 09/29/20 14:31 DC 09/29/20 12:14 Furosemide (Lasix) 20 mg DAILY PO 10/02/20 09:00 10/04/20 08:09 Gabapentin (Neurontin) 200 mg QHS PO 09/30/20 21:00 10/01/20 11:49 DC 09/30/20 20:41 Gabapentin (Neurontin) 200 mg TID PO 10/01/20 16:00 10/04/20 20:59 Losartan Potassium (Cozaar) 12.5 mg QHS PO 09/27/20 21:00 09/29/20 14:31 DC 09/28/20 20:25 Metoprolol Tartrate (Lopressor) 12.5 mg BID PO 10/01/20 09:00 10/04/20 20:58 Oxycodone HCl (Roxicodone, Oxyir) 5 mg Q4HP PRN PO PAIN 09/27/20 15:45 10/03/20 20:55 Pantoprazole Sodium (Protonix) 40 mg DAILY PO 09/28/20 09:00 10/04/20 08:09 Rivaroxaban (Xarelto) 15 mg DAILY@1800 PO 09/28/20 18:00 10/04/20 17:37 Senna (Senokot) 1 tab QHS PO 09/27/20 21:00 10/04/20 20:57 MINI CHAVARRIA MD October 04, 2020 23:04
[2020-10-05 06:00] VITALS: BP 132/69
[2020-10-05] MEDS: METOPROLOL TART 12.5 MG PER 1/2 TAB PO SCH ×2 (08:47→21:30)
[2020-10-05] MEDS: FUROSEMIDE 20 MG TAB PO SCH (08:47)
[2020-10-05] MEDS: DOCUSATE SODIUM 100MG CAPSULE PO SCH ×2 (08:47→21:31)
[2020-10-05] MEDS: GABAPENTIN 100 MG CAP PO SCH ×3 (08:47→21:30)
[2020-10-05] MEDS: REMEDY PHYTOPLEX Z-GUARD PASTE 113GM TUBE (FROM STOREROOM PRODUCT) TOP SCH ×3 (08:48→21:31)
[2020-10-05] MEDS: PANTOPRAZOLE 40MG TAB (PROTONIX) PO SCH (08:48)
[2020-10-05] MEDS: ACETAMINOPHEN 500 MG TAB PO SCH ×3 (08:48→21:30)
--- NOTE | 2020-10-05 10:26 | IPNPDOC ---
PM&R Progress Note DATE OF SERVICE: October 05, 2020 Nutritional Services Host Progress Note Subjective: Patient in his room stating he feels ok, his pain is improving and that he feels ready to go home Sunday. REVIEW OF SYSTEMS: The following is a completed review of systems and has been reviewed. Review of systems otherwise unremarkable. PAIN: Patient self reports left hip pain EYES: No recent vision changes EARS, NOSE, & THROAT: No throat pain, or dysphagia, or rhinorrhea CARDIOVASCULAR: Denies chest pain or palpitations PULMONARY: Denies shortness of breath GASTROINTESTINAL: Denies constipation/diarrhea GENITOURINARY: + dysuria (improved). +frequency MUSCULOSKELETAL: left hip fracture NEUROLOGICAL: denies paresthesias HEMATOLOGICAL: +anemia SKIN: left hip incision PSYCHIATRIC: Unremarkable All other review of systems found to be negative. PHYSICAL EXAMINATION: VITAL SIGNS: Please see below. GENERAL: Pleasant and cooperative. No acute distress. HEENT: PERRL. Extraocular movements intact. Clear conjunctiva CARDIOVASCULAR: Regular rate and rhythm. No murmurs, rubs, or gallops LUNGS: Clear to auscultation bilaterally. No wheezes. No rhonchi ABDOMEN: Soft, nontender, nondistended. Positive bowel sounds. Normal active bowel sounds NEUROLOGICAL: Alert and oriented times three. Cranial nerves II through XII grossly intact. Sensation grossly intact EXTREMITIES: 5\5 strength bilateral upper extremities. 5-\5 strength right lower extremity. 5-/5 strength in left ankle DF and EHL (limited due to surgery) LLE edema (improving) SKIN: left hip ecchymosis/swelling improving, no induration, incision c/d/i ASSESSMENT:85-year-old M with past medical history of Afib with PM who presents status post fall with left hip fracture PLAN: 1.Rehab- PT/OT advance mobility and ADls, strengthen/stretch/maintain ROM all 4 limbs- ambulating with RW 2. Neuro- monitor for delirium 3. Ortho- s/p left hip ORIF 09-23-20 - WBAT, on xarelto for Afib, f/u ortho 2 weeks -hip- xray 10-04-20 negative for periprosthetic fracture 4. CArdiac- hx of Afib with pacemaker on xarelto, started low dose metoprolol for afib and to help control BPs- f/u cardiology on dc - HTN, c/u amlodipine 2.5mg BID with holding parameters and metoprolol 12.5 mg BID - LLE edema improving, c/u lasix 5. Resp- monitor for infection 6. HEme- post-op anemia consider transfusion if Hgb <8 7. GI ppx- protonix 8. DVT ppx- on xarelto 9. Pain- tylenol ice, oxycodone, gabapentin 200mg TID 10. - monitor PVRs, patient reporting burning with urination has improved, UA negative -patient stating he is urinating only very little bits all day, suspect BPH will start finasteride as patient allergic to flomax 11. Dispo- 10-08-20, to home, progressing towards goals Allergies Coded Allergies: tamsulosin (Verified Allergy, Intermediate, hives, 09/21/20) hydrochlorothiazide (Verified Adverse Reaction, Intermediate, pancreatitis, 09/21/20) Vital Signs Vital Signs Date Time Temp Pulse Resp B/P (MAP) Pulse Ox O2 Delivery O2 Flow Rate FiO2 10/05/20 08:47 67 129/72 10/05/20 06:00 97.2 18 98 Room Air Current Medications Current Medications Current Medications Medications (Trade) Dose Ordered Sig/[place] Route PRN Reason Start Time Stop Time Status Last Admin Dose Admin Acetaminophen (Tylenol Tab) 1,000 mg TID PO 09/27/20 21:00 10/05/20 08:48 Amlodipine Besylate (Norvasc) 2.5 mg BID PO 09/29/20 21:00 10/05/20 08:48 Amlodipine Besylate (Norvasc) 5 mg DAILY PO 09/28/20 09:00 09/28/20 12:23 DC Atorvastatin Calcium (Lipitor) 10 mg Q2D@1200 PO 09/28/20 12:00 10/04/20 12:52 Bisacodyl (Dulcolax Suppository) 10 mg DAILYPRN PRN [place] CONSTIPATION 09/27/20 15:45 Docusate Sodium (Colace) 100 mg BID PO 09/27/20 21:00 10/05/20 08:47 Fludrocortisone Acetate (Florinef) 0.1 mg Q2D@1200 PO 09/29/20 12:00 09/29/20 14:31 DC 09/29/20 12:14 Furosemide (Lasix) 20 mg DAILY PO 10/02/20 09:00 10/05/20 08:47 Gabapentin (Neurontin) 200 mg QHS PO 09/30/20 21:00 10/01/20 11:49 DC 09/30/20 20:41 Gabapentin (Neurontin) 200 mg TID PO 10/01/20 16:00 10/05/20 08:47 Losartan Potassium (Cozaar) 12.5 mg QHS PO 09/27/20 21:00 09/29/20 14:31 DC 09/28/20 20:25 Metoprolol Tartrate (Lopressor) 12.5 mg BID PO 10/01/20 09:00 10/05/20 08:47 Oxycodone HCl (Roxicodone, Oxyir) 5 mg Q4HP PRN PO PAIN 09/27/20 15:45 10/03/20 20:55 Pantoprazole Sodium (Protonix) 40 mg DAILY PO 09/28/20 09:00 10/05/20 08:48 Rivaroxaban (Xarelto) 15 mg DAILY@1800 PO 09/28/20 18:00 10/04/20 17:37 Senna (Senokot) 1 tab QHS PO 09/27/20 21:00 10/04/20 20:57 MINI CHAVARRIA MD October 05, 2020 10:26
[2020-10-05 14:00] VITALS: BP 107/59
[2020-10-05] MEDS: RIVAROXABAN 15 MG TAB (XARELTO) PO SCH (17:16)
[2020-10-05] MEDS: SENNA 8.6 MG TAB (SENOKOT) PO SCH (21:27)
[2020-10-05 22:00] VITALS: BP 158/60
[2020-10-06 06:28] VITALS: BP 158/88
[2020-10-06 07:03] LABS: BASO % 0.6 % (0.0-1.0); EOS # 0.3 10^3/uL (0.0-0.5); EOS % 4.5 % (0.0-3.0); HEMOGLOBIN 9.8 g/dl (13.5-17.5); LYMPH # 1.4 10^3/uL (1.5-5.0); LYMPH % 20.2 % (24.0-44.0); MEAN CORPUSCULAR HEMOGLOBIN 31.7 pg (27.0-33.0); MEAN CORPUSCULAR HGB CONC 31.6 g/dl (32.0-36.5); MEAN CORPUSCULAR VOLUME 100.3 fl (80.0-96.0); MONO # 0.7 10^3/uL (0.0-0.8); MONO % 10.1 % (2.0-8.0); NEUTROPHILS # 4.6 10^3/uL (1.5-8.5); NEUTROPHILS % 63.6 % (36.0-66.0); PLATELET COUNT, AUTOMATED 304 10^3/uL (150-450); RED BLOOD COUNT 3.09 10^6/uL (4.30-6.10); WHITE BLOOD COUNT 7.1 10^3/uL (4.0-10.0)
[2020-10-06 07:21] LABS: BLOOD UREA NITROGEN 31 MG/DL (7-18); CALCIUM LEVEL 8.6 MG/DL (8.8-10.2); CARBON DIOXIDE LEVEL 28 MEQ/L (21-32); CHLORIDE LEVEL 107 MEQ/L (98-107); CREATININE FOR GFR 1.19 MG/DL (0.70-1.30); GLOMERULAR FILTRATION RATE > 60.0 (>35); GLUCOSE, FASTING 87 MG/DL (70-100); POTASSIUM SERUM 4.4 MEQ/L (3.5-5.1); SODIUM LEVEL 140 MEQ/L (136-145)
[2020-10-06] MEDS: DOCUSATE SODIUM 100MG CAPSULE PO SCH ×2 (09:00→20:41)
[2020-10-06] MEDS: GABAPENTIN 100 MG CAP PO SCH ×3 (09:12→20:42)
[2020-10-06] MEDS: PANTOPRAZOLE 40MG TAB (PROTONIX) PO SCH (09:13)
[2020-10-06] MEDS: FUROSEMIDE 20 MG TAB PO SCH (09:13)
[2020-10-06] MEDS: ACETAMINOPHEN 500 MG TAB PO SCH ×3 (09:13→20:42)
[2020-10-06] MEDS: METOPROLOL TART 12.5 MG PER 1/2 TAB PO SCH ×2 (09:13→20:42)
[2020-10-06] MEDS: REMEDY PHYTOPLEX Z-GUARD PASTE 113GM TUBE (FROM STOREROOM PRODUCT) TOP SCH ×3 (09:14→20:44)
--- NOTE | 2020-10-06 09:39 | IPNPDOC ---
PM&R Progress Note DATE OF SERVICE: October 06, 2020 [employer] Progress Note Subjective: Patient seen in therapy working on walking on uneven surfaces stating he feels good and ready for room privileges later today. REVIEW OF SYSTEMS: The following is a completed review of systems and has been reviewed. Review of systems otherwise unremarkable. PAIN: Patient self reports left hip pain EYES: No recent vision changes EARS, NOSE, & THROAT: No throat pain, or dysphagia, or rhinorrhea CARDIOVASCULAR: Denies chest pain or palpitations PULMONARY: Denies shortness of breath GASTROINTESTINAL: Denies constipation/diarrhea GENITOURINARY: + dysuria (improved). +frequency MUSCULOSKELETAL: left hip fracture NEUROLOGICAL: denies paresthesias HEMATOLOGICAL: +anemia SKIN: left hip incision PSYCHIATRIC: Unremarkable All other review of systems found to be negative. PHYSICAL EXAMINATION: VITAL SIGNS: Please see below. GENERAL: Pleasant and cooperative. No acute distress. HEENT: PERRL. Extraocular movements intact. Clear conjunctiva CARDIOVASCULAR: Regular rate and rhythm. No murmurs, rubs, or gallops LUNGS: Clear to auscultation bilaterally. No wheezes. No rhonchi ABDOMEN: Soft, nontender, nondistended. Positive bowel sounds. Normal active bowel sounds NEUROLOGICAL: Alert and oriented times three. Cranial nerves II through XII grossly intact. Sensation grossly intact EXTREMITIES: 5\5 strength bilateral upper extremities. 5-\5 strength right lower extremity. 5-/5 strength in left ankle DF and EHL (limited due to surgery) LLE edema (improving) SKIN: left hip ecchymosis/swelling improving, no induration, incision c/d/i ASSESSMENT:85-year-old M with past medical history of Afib with PM who presents status post fall with left hip fracture PLAN: 1.Rehab- PT/OT advance mobility and ADls, strengthen/stretch/maintain ROM all 4 limbs- ambulating with RW-room privileges 2. Neuro- monitor for delirium 3. Ortho- s/p left hip ORIF 09-23-20 - WBAT, on xarelto for Afib, f/u ortho 2 weeks -hip- xray 10-04-20 negative for periprosthetic fracture 4. CArdiac- hx of Afib with pacemaker on xarelto, started low dose metoprolol for afib and to help control BPs- f/u cardiology on dc - HTN, c/u amlodipine 2.5mg BID with holding parameters and metoprolol 12.5 mg BID - LLE edema improving, c/u lasix 5. Resp- monitor for infection 6. HEme- post-op anemia consider transfusion if Hgb <8 7. GI ppx- protonix 8. DVT ppx- on xarelto 9. Pain- tylenol ice, oxycodone, gabapentin 200mg TID 10. - monitor PVRs, patient reporting burning with urination has improved, UA negative -patient stating he is urinating only very little bits all day, suspect BPH will start finasteride as patient allergic to flomax 11. Dispo- 10-08-20, to home, progressing towards goals Allergies Coded Allergies: tamsulosin (Verified Allergy, Intermediate, hives, 09/21/20) hydrochlorothiazide (Verified Adverse Reaction, Intermediate, pancreatitis, 09/21/20) Vital Signs Vital Signs Date Time Temp Pulse Resp B/P (MAP) Pulse Ox O2 Delivery O2 Flow Rate FiO2 10/06/20 09:13 78 158/88 10/06/20 06:28 98.3 16 98 Room Air Laboratory Data CBC/BMP Laboratory Tests 10/06/20 06:29 Labs 24H Laboratory Tests 2 10/06/20 06:29: Immature Granulocyte % (Auto) 1.0, Neutrophils (%) (Auto) 63.6, Lymphocytes (%) (Auto) 20.2L, Monocytes (%) (Auto) 10.1H, Eosinophils (%) (Auto) 4.5H, Basophils (%) (Auto) 0.6, Neutrophils # (Auto) 4.6, Lymphocytes # (Auto) 1.4L, Monocytes # (Auto) 0.7, Eosinophils # (Auto) 0.3, Basophils # (Auto) 0.0, Nucleated Red Blood Cells % (auto) 0.0, Anion Gap 5L, Glomerular Filtration Rate > 60.0, Calcium Level 8.6L Current Medications Current Medications Current Medications Medications (Trade) Dose Ordered Sig/[place] Route PRN Reason Start Time Stop Time Status Last Admin Dose Admin Acetaminophen (Tylenol Tab) 1,000 mg TID PO 09/27/20 21:00 10/06/20 09:13 Amlodipine Besylate (Norvasc) 2.5 mg BID PO 09/29/20 21:00 10/06/20 09:13 Amlodipine Besylate (Norvasc) 5 mg DAILY PO 09/28/20 09:00 09/28/20 12:23 DC Atorvastatin Calcium (Lipitor) 10 mg Q2D@1200 PO 09/28/20 12:00 10/04/20 12:52 Bisacodyl (Dulcolax Suppository) 10 mg DAILYPRN PRN [place] CONSTIPATION 09/27/20 15:45 Docusate Sodium (Colace) 100 mg BID PO 09/27/20 21:00 10/05/20 21:31 Fludrocortisone Acetate (Florinef) 0.1 mg Q2D@1200 PO 09/29/20 12:00 09/29/20 14:31 DC 09/29/20 12:14 Furosemide (Lasix) 20 mg DAILY PO 10/02/20 09:00 10/06/20 09:13 Gabapentin (Neurontin) 200 mg QHS PO 09/30/20 21:00 10/01/20 11:49 DC 09/30/20 20:41 Gabapentin (Neurontin) 200 mg TID PO 10/01/20 16:00 10/06/20 09:12 Losartan Potassium (Cozaar) 12.5 mg QHS PO 09/27/20 21:00 09/29/20 14:31 DC 09/28/20 20:25 Metoprolol Tartrate (Lopressor) 12.5 mg BID PO 10/01/20 09:00 10/06/20 09:13 Oxycodone HCl (Roxicodone, Oxyir) 5 mg Q4HP PRN PO PAIN 09/27/20 15:45 10/03/20 20:55 Pantoprazole Sodium (Protonix) 40 mg DAILY PO 09/28/20 09:00 10/06/20 09:13 Rivaroxaban (Xarelto) 15 mg DAILY@1800 PO 09/28/20 18:00 10/05/20 17:16 Senna (Senokot) 1 tab QHS PO 09/27/20 21:00 10/05/20 21:27 MINI CHAVARRIA MD October 06, 2020 09:39
[2020-10-06] MEDS: FINASTERIDE 5 MG TAB PO SCH (11:10)
[2020-10-06] MEDS: ATORVASTATIN 10 MG TAB PO SCH (11:10)
[2020-10-06 14:00] VITALS: BP 113/59
[2020-10-06] MEDS: RIVAROXABAN 15 MG TAB (XARELTO) PO SCH (16:29)
[2020-10-06 20:00] VITALS: BP 150/75
[2020-10-06] MEDS: SENNA 8.6 MG TAB (SENOKOT) PO SCH (20:41)
[2020-10-07 05:06] VITALS: BP 150/72
[2020-10-07 08:49] VITALS: BP 101/63
[2020-10-07] MEDS: METOPROLOL TART 12.5 MG PER 1/2 TAB PO SCH ×2 (08:50→20:18)
[2020-10-07] MEDS: DOCUSATE SODIUM 100MG CAPSULE PO SCH ×2 (08:51→20:18)
[2020-10-07] MEDS: ACETAMINOPHEN 500 MG TAB PO SCH ×3 (08:51→20:19)
[2020-10-07] MEDS: FINASTERIDE 5 MG TAB PO SCH (08:51)
[2020-10-07] MEDS: GABAPENTIN 100 MG CAP PO SCH ×3 (08:51→20:19)
[2020-10-07] MEDS: PANTOPRAZOLE 40MG TAB (PROTONIX) PO SCH (08:51)
[2020-10-07] MEDS: FUROSEMIDE 20 MG TAB PO SCH (08:52)
[2020-10-07] MEDS: REMEDY PHYTOPLEX Z-GUARD PASTE 113GM TUBE (FROM STOREROOM PRODUCT) TOP SCH ×3 (08:52→20:19)
[2020-10-07] MEDS ORDERED: OXYC-517 PO (09:19)
[2020-10-07] MEDS ORDERED: GABA-1171 PO (09:19)
[2020-10-07] MEDS ORDERED: XARE15TA PO (09:19)
[2020-10-07] MEDS ORDERED: METO1TAB87 PO (09:19)
[2020-10-07] MEDS ORDERED: ATOR1TAB19 PO (09:19)
[2020-10-07] MEDS ORDERED: FURO20TA2 PO (09:19)
[2020-10-07] MEDS ORDERED: PANT40TA29 PO (09:19)
[2020-10-07] MEDS ORDERED: FINA5TAB2 PO (09:19)
[2020-10-07] MEDS ORDERED: AMLO25TA PO (09:19)
--- NOTE | 2020-10-07 10:24 | IPNPDOC ---
PM&R Progress Note DATE OF SERVICE: October 07, 2020 Service Order Dispatcher Progress Note Subjective: REVIEW OF SYSTEMS: The following is a completed review of systems and has been reviewed. Review of systems otherwise unremarkable. PAIN: Patient self reports left hip pain EYES: No recent vision changes EARS, NOSE, & THROAT: No throat pain, or dysphagia, or rhinorrhea CARDIOVASCULAR: Denies chest pain or palpitations PULMONARY: Denies shortness of breath GASTROINTESTINAL: Denies constipation/diarrhea GENITOURINARY: + dysuria (improved). +frequency MUSCULOSKELETAL: left hip fracture NEUROLOGICAL: denies paresthesias HEMATOLOGICAL: +anemia SKIN: left hip incision PSYCHIATRIC: Unremarkable All other review of systems found to be negative. PHYSICAL EXAMINATION: VITAL SIGNS: Please see below. GENERAL: Pleasant and cooperative. No acute distress. HEENT: PERRL. Extraocular movements intact. Clear conjunctiva CARDIOVASCULAR: Regular rate and rhythm. No murmurs, rubs, or gallops LUNGS: Clear to auscultation bilaterally. No wheezes. No rhonchi ABDOMEN: Soft, nontender, nondistended. Positive bowel sounds. Normal active bowel sounds NEUROLOGICAL: Alert and oriented times three. Cranial nerves II through XII grossly intact. Sensation grossly intact EXTREMITIES: 5\5 strength bilateral upper extremities. 5-\5 strength right lower extremity. 5-/5 strength in left ankle DF and EHL (limited due to surgery) LLE edema (improving) SKIN: left hip ecchymosis/swelling improving, no induration, incision c/d/i ASSESSMENT:85-year-old M with past medical history of Afib with PM who presents status post fall with left hip fracture PLAN: 1.Rehab- PT/OT advance mobility and ADls, strengthen/stretch/maintain ROM all 4 limbs- ambulating with RW-room privileges 2. Neuro- monitor for delirium 3. Ortho- s/p left hip ORIF 09-23-20 - WBAT, on xarelto for Afib, f/u ortho 2 weeks -hip- xray 10-04-20 negative for periprosthetic fracture 4. CArdiac- hx of Afib with pacemaker on xarelto, started low dose metoprolol for afib and to help control BPs- f/u cardiology on dc - HTN, c/u amlodipine 2.5mg BID with holding parameters and metoprolol 12.5 mg BID - LLE edema improving, c/u lasix 5. Resp- monitor for infection 6. HEme- post-op anemia consider transfusion if Hgb <8 7. GI ppx- protonix 8. DVT ppx- on xarelto 9. Pain- tylenol ice, oxycodone, gabapentin 200mg TID 10. - monitor PVRs, patient reporting burning with urination has improved, UA negative -patient stating he is urinating only very little bits all day, suspect BPH will start finasteride as patient allergic to flomax 11. Dispo- 10-08-20, to home, progressing towards goals Allergies Coded Allergies: tamsulosin (Verified Allergy, Intermediate, hives, 09/21/20) hydrochlorothiazide (Verified Adverse Reaction, Intermediate, pancreatitis, 09/21/20) Vital Signs Vital Signs Date Time Temp Pulse Resp B/P (MAP) Pulse Ox O2 Delivery O2 Flow Rate FiO2 10/07/20 08:50 63 101/63 10/07/20 05:06 97.7 18 97 Room Air Current Medications Current Medications Current Medications Medications (Trade) Dose Ordered Sig/[place] Route PRN Reason Start Time Stop Time Status Last Admin Dose Admin Acetaminophen (Tylenol Tab) 1,000 mg TID PO 09/27/20 21:00 10/07/20 08:51 Amlodipine Besylate (Norvasc) 2.5 mg BID PO 09/29/20 21:00 10/06/20 20:42 Amlodipine Besylate (Norvasc) 5 mg DAILY PO 09/28/20 09:00 09/28/20 12:23 DC Atorvastatin Calcium (Lipitor) 10 mg Q2D@1200 PO 09/28/20 12:00 10/06/20 11:10 Bisacodyl (Dulcolax Suppository) [address] CONSTIPATION 09/27/20 15:45 Docusate Sodium (Colace) 100 mg BID PO 09/27/20 21:00 10/07/20 08:51 Finasteride (Proscar) 5 mg DAILY PO 10/06/20 10:00 10/07/20 08:51 Fludrocortisone Acetate (Florinef) 0.1 mg Q2D@1200 PO 09/29/20 12:00 09/29/20 14:31 DC 09/29/20 12:14 Furosemide (Lasix) 20 mg DAILY PO 10/02/20 09:00 10/07/20 08:52 Gabapentin (Neurontin) 200 mg QHS PO 09/30/20 21:00 10/01/20 11:49 DC 09/30/20 20:41 Gabapentin (Neurontin) 200 mg TID PO 10/01/20 16:00 10/07/20 08:51 Losartan Potassium (Cozaar) 12.5 mg QHS PO 09/27/20 21:00 09/29/20 14:31 DC 09/28/20 20:25 Metoprolol Tartrate (Lopressor) 12.5 mg BID PO 10/01/20 09:00 10/06/20 20:42 Oxycodone HCl (Roxicodone, Oxyir) 5 mg Q4HP PRN PO PAIN 09/27/20 15:45 10/03/20 20:55 Pantoprazole Sodium (Protonix) 40 mg DAILY PO 09/28/20 09:00 10/07/20 08:51 Rivaroxaban (Xarelto) 15 mg DAILY@1800 PO 09/28/20 18:00 10/06/20 16:29 Senna (Senokot) 1 tab QHS PO 09/27/20 21:00 10/06/20 20:41 MINI CHAVARRIA MD October 07, 2020 10:24
[2020-10-07 14:00] VITALS: BP 123/64
[2020-10-07] MEDS: RIVAROXABAN 15 MG TAB (XARELTO) PO SCH (17:26)
[2020-10-07 20:00] VITALS: BP 135/63
[2020-10-07] MEDS: SENNA 8.6 MG TAB (SENOKOT) PO SCH (20:18)
[2020-10-08 05:10] VITALS: BP 142/83
[2020-10-08] MEDS: ACETAMINOPHEN 500 MG TAB PO SCH (08:58)
[2020-10-08] MEDS: FINASTERIDE 5 MG TAB PO SCH (08:58)
[2020-10-08 08:59] VITALS: BP 142/83
[2020-10-08] MEDS: FUROSEMIDE 20 MG TAB PO SCH (08:59)
[2020-10-08] MEDS: REMEDY PHYTOPLEX Z-GUARD PASTE 113GM TUBE (FROM STOREROOM PRODUCT) TOP SCH (08:59)
[2020-10-08] MEDS: GABAPENTIN 100 MG CAP PO SCH (08:59)
[2020-10-08] MEDS: PANTOPRAZOLE 40MG TAB (PROTONIX) PO SCH (08:59)
[2020-10-08] MEDS: DOCUSATE SODIUM 100MG CAPSULE PO SCH (08:59)
[2020-10-08] MEDS: METOPROLOL TART 12.5 MG PER 1/2 TAB PO SCH (08:59)
== END 2020-10-08 10:50 | disposition home health service (06) | DRG 560 ==
LOC: M PM&R 17:45
PROVIDERS: ADMIT Physical Medicine & Rehabilitation; ATTEND Physical Medicine & Rehabilitation
DX: S72.142D Displaced intertrochanteric fracture of left femur, subsequent encounter for closed fracture with routine healing (principal); I48.20 Chronic atrial fibrillation, unspecified; I10 Essential (primary) hypertension; E78.5 Hyperlipidemia, unspecified; Z95.0 Presence of cardiac pacemaker; W19.XXXD Unspecified fall, subsequent encounter; Y92.009 Unspecified place in unspecified non-institutional (private) residence as the place of occurrence of the external cause; Z74.1 Need for assistance with personal care; Z74.09 Other reduced mobility; D64.9 Anemia, unspecified; Z79.01 Long term (current) use of anticoagulants; Z79.899 Other long term (current) drug therapy; Z88.8 Allergy status to other drugs, medicaments and biological substances; I95.1 Orthostatic hypotension

== ENCOUNTER → 2020-10-22 | Outpatient (CLI) | payer MEDICARE, BC ==
[~2020-10-22] MED LIST changes: +AMLO25TA PO; +FINA5TAB2 PO; +FURO20TA2 PO; +GABA-1171 PO; +METO1TAB87 PO; +PANT40TA29 PO
--- NOTE | 2020-10-22 15:16 | REP ---
INDICATION: PAIN COMPARISON: 10/04/2020, 09/22/2019 TECHNIQUE: AP view of the pelvis with neutral and frog-lateral views of the left femur. FINDINGS: Visualized portions of the pelvis demonstrate age-related osteopenia and degenerative changes. Stable prior right hip fixation. Stable appearance to the recently fixated left intertrochanteric femur fracture. IMPRESSION: Stable recent fixated left intertrochanteric femur fracture. <Electronically signed by Vishal Beyer > 10/22/20 1216
== END ==
LOC: M SOG 13:08
PROVIDERS: ATTEND Orthopaedic Surgery Adult Reconstructive Orthopaedic Surgery
DX: M25.552 Pain in left hip (principal)